=== PATIENT | male | born 1985 | race Caucasian/White ===

== ENCOUNTER 2018-01-13 08:35 | Inpatient (IN) | payer MEDICAID ==
[2018-01-13] VITALS (14 sets, daily range): BP systolic 100–117; BP diastolic 59–80
[~2018-01-13] VITALS: Ht 180.3 cm; Wt 93.9 kg
[2018-01-13 09:44] LABS: MCH 37.6 pg (26.0-34.0); MCHC 34.1 g/dL (28.0-37.0); MCV 110.2 fL (80.0-100.0); NUCLEATED RBCS 1 /100WBC; PLATELET COUNT* 277 thou/uL (150-400); RBC 3.18 mil/uL (4.50-6.00); RDW-CV 17.3 % (10.5-14.5); WBC 14.5 thou/uL (4.0-11.0)
[2018-01-13 09:48] LABS: ANION GAP 12 mmol/L (7-16); BUN 8 mg/dL (7-18); CALCIUM 11.3 mg/dL (8.5-10.1); CHLORIDE 85 mmol/L (98-107); CO2 26 mmol/L (21-32); CREATININE 1.2 mg/dL (0.6-1.3); SODIUM 123 mmol/L (136-145)
[2018-01-13 09:55] LABS: ALBUMIN 1.9 g/dL (3.4-5.0); ALKALINE PHOSPHATASE 405 U/L (46-116); LIPASE 431 U/L (73-393); SGOT 823 U/L (15-37); SGPT 90 U/L (30-65); TOTAL BILIRUBIN 21.4 mg/dL (<0.1-1.0); TOTAL PROTEIN 6.7 g/dL (6.4-8.2); TROPONIN-I LEVEL <0.06 ng/mL (<0.06)
[2018-01-13 10:10] LABS: POTASSIUM 2.6 mmol/L (3.5-5.1)
[2018-01-13 10:11] LABS: GLUCOSE 119 mg/dL (70-99)
[2018-01-13 10:18] LABS: PHOSPHORUS* 2.5 mg/dL (2.5-4.9)
[2018-01-13 10:29] LABS: MAGNESIUM 0.8 mg/dL (1.8-2.4)
--- NOTE | 2018-01-13 10:32 | NUR ---
PT REFUSING TO WEAR OXYGEN, PROVIDER NOTIFIED
[2018-01-13 10:36] LABS: BE 0.9 mmol/L (-2 to +3); HCO3 23.3 mmol/L (22.0-26.0); PCO2 VENOUS 30.1 mmHg (41.0-51.0)
[2018-01-13 10:37] LABS: PO2 VENOUS 38.9 mmHg (35.0-45.0)
[2018-01-13 10:51] LABS: ABSOLUTE BASOPHILS 0.1 thou/uL (0.0-0.2); ABSOLUTE LYMPHOCYTES 2.6 thou/uL (0.8-5.3); ABSOLUTE MONOCYTES 1.9 thou/uL (0.0-1.2); ABSOLUTE NEUTROPHILS 9.9 thou/uL (1.6-8.1); ANISOCYTOSIS 2+; ATYPICAL LYMPHS 2 %; LARGE PLATELETS OCCASIONAL; PLATELET ESTIMATE ADEQUATE; POLYCHROMASIA 2+; PROMYELOCYTES 1 %
[2018-01-13 10:52] LABS: TARGET CELLS 1+
--- NOTE | 2018-01-13 11:05 | NUR ---
SPOKE TO RASHI, ADMITTING RN IN ICU, WILL CALL REPORT WHILE IN CT AND TAKE PT TO ROOM FROM THERE
[2018-01-13 12:39] LABS: INR 1.8; PROTIME 17.8 Seconds (9.20-11.50)
--- NOTE | 2018-01-13 12:42 | EKG ---
[place] [address] ELECTROCARDIOGRAM REPORT Name: OLIVE REDDY Room: [address] IN [facility].#: [id number] Admission: 01/13/18 Attend Phys: Annamarie Ye MD Discharge: Date of : 81 Report #: [id number] THIS REPORT FOR: //name// [facility] ED Test Date: 2018-01-13 Test Time: 08:49:20 Pat Name: OLIVE REDDY Department: Room: Gender: Full Time Staff Interpreter: : 1985 Requested By: Eliz Renteria Order Number: [id number] MD: Jacob Carter Measurements Intervals [place] Rate: 124 P: 11 IA: 130 QRS: -68 QRSD: 85 T: 56 QT: 330 QTc: 474 Interpretive Statements Sinus tachycardia Low voltage, extremity leads Consider inferior infarct Borderline prolonged QT interval No previous ECG available for comparison Electronically Signed On 01-13-2018 12:42:45 CDT by Jacob Carter [email or web address] <ELECTRONICALLY SIGNED> By: Jacob Carter MD, [facility] 01/13/18 1242 0849 [id number] Jacob Carter MD, [facility] /EPI
[2018-01-13 13:30] LABS: CREATININE 1.1 mg/dL (0.6-1.3)
[2018-01-13 13:32] LABS: POTASSIUM 2.9 mmol/L (3.5-5.1)
--- NOTE | 2018-01-13 14:10 | NUR ---
RECEIVED PT FROM ER. PT ALERT TO PERSON, PLACE, SITUATION, YEAR AND MONTH. PT REPORTED IT IS MONDAY. CIWA'S CHARTED. PT DENIES FEELING ANXIOUS, PT FIDGETING WITH BLANKET, MOVING THINGS AROUND, APPEARS SLIGHTLY ANXIOUS. PT C/O OF ABDOMINAL PAIN. SPOKE TO PT , PT CAN HAVE 1 TIME 4MG MORPHINE. ADMISSION ASSESSMENT COMPLETE. BED ALARM ON. MAGNESIUM AND POTASSIUM REPLACED. NOTIFIED NO IV MAGNESIUM AVAILABLE PER PHARMACY. PO MAG DOMINGUEZ. PT ON ELECTROLYTE PROTOCOL.
[2018-01-13 16:23] LABS: URINE BLOOD TRACE (Negative); URINE CLARITY SL CLOUDY; URINE COLOR BROWN; URINE GLUCOSE-RANDOM TRACE (Negative); URINE KETONES 1+ (Negative); URINE LEUKOCYTES-REFLEX NEGATIVE (Negative); URINE NITRITE-REFLEX NEGATIVE (Negative); URINE PROTEIN 1+ (Negative); URINE SPECIFIC GRAVITY <= 1.005 (1.005-1.030)
[2018-01-13 16:24] LABS: URINE BILIRUBIN 3+ (Negative)
[2018-01-13 16:30] LABS: AMP/METHAMP Negative (Negative); BARBITURATES Negative (Negative); BENZODIAZEPINES Negative (Negative); COCAINE Negative (Negative); METHADONE Negative (Negative); OPIATES POSITIVE (Negative); PCP Negative (Negative); THC Negative (Negative)
[2018-01-13 16:42] LABS: SQUAMOUS 0-3 Few /LPF (0-3)
[2018-01-13 16:43] LABS: HYALINE CASTS 0-3 Few /LPF (None Seen); MUCUS 0-3 Light strn/LPF (None Seen)
[2018-01-13 16:44] LABS: BACTERIA-REFLEX 1-9 Few /HPF (None Seen); CRYSTALS None Seen /LPF (None Seen); URINE RBC 0-2 Rare /HPF (0-2); URINE WBC-REFLEX 6-15 Few /HPF (0-5)
--- NOTE | 2018-01-13 19:29 | NUR ---
PER ULTRASOUND UNABLE TO DO ULTRASOUND TODAY, WILL DO IN AM. PER RADIOLOGY UNABLE TO DO PARACENTESIS TODAY.
--- NOTE | 2018-01-13 19:59 | NUR ---
RECIEVED RUSSELL AND ASSUMED CARE OF PT AT 1930. MPT INCONTINENT OF LARGE LIQUID STOOL AT THAT TIME. PT GIVEN COMPLETE BATH AND BED CHANGE. PT RESTING QUIETLY IN BED AT THIS TIME. BED ALARM ON, CALL LIGHT IN REACH, PT INVIEW OF NURSES STATION.
[2018-01-13 20:24] LABS: CALCIUM 10.2 mg/dL (8.5-10.1); MAGNESIUM 1.1 mg/dL (1.8-2.4); POTASSIUM 3.4 mmol/L (3.5-5.1)
[2018-01-14] VITALS (21 sets, daily range): BP systolic 103–124; BP diastolic 65–95
[2018-01-14 00:05] LABS: CALCIUM 9.9 mg/dL (8.5-10.1); MAGNESIUM 1.3 mg/dL (1.8-2.4); POTASSIUM 3.5 mmol/L (3.5-5.1)
[2018-01-14 04:02] LABS: HEMATOCRIT 31.5 % (42.0-52.0); HEMOGLOBIN 10.8 gm/dL (14.0-18.0); MCH 38.3 pg (26.0-34.0); MCHC 34.2 g/dL (28.0-37.0); MPV 11.1 fl. (7.2-11.1); RBC 2.81 mil/uL (4.50-6.00); RDW-CV 17.3 % (10.5-14.5); WBC 14.4 thou/uL (4.0-11.0)
[2018-01-14 04:16] LABS: INR 1.5; PROTIME 14.8 Seconds (9.20-11.50)
[2018-01-14 04:22] LABS: ALBUMIN 1.8 g/dL (3.4-5.0); CALCIUM 9.2 mg/dL (8.5-10.1); CREATININE 0.8 mg/dL (0.6-1.3); MAGNESIUM 1.4 mg/dL (1.8-2.4); POTASSIUM 3.8 mmol/L (3.5-5.1); TOTAL BILIRUBIN 22.5 mg/dL (<0.1-1.0); TOTAL PROTEIN 6.2 g/dL (6.4-8.2)
[2018-01-14 04:41] LABS: ALBUMIN 1.8 g/dL (3.4-5.0); DIRECT BILIRUBIN 19.2 mg/dL (<0.1-0.3); TOTAL BILIRUBIN 22.9 mg/dL (<0.1-1.0); TOTAL PROTEIN 5.9 g/dL (6.4-8.2)
[2018-01-14 07:35] LABS: HEPATITIS B SURFACE AG Negative (Negative)
--- NOTE | 2018-01-14 07:52 | NUR ---
RECEIVED REPORT FROM YOANA MENDOZA. ASSESSMENT CHARTED. AFEBRILE. PT IS ON CIWA PROTOCOL. PT CONFUSED AND NOT ABLE TO COMMUNICATE. PARACENTESIS IS GOING TO BE PERFOMED RIGHT NOW. DR STYLES ORDERED A CENTRAL LINE, TPN, AND A LE. WILL CONTINUE TO MONITOR.
[2018-01-14 10:26] LABS: BF RBC <1000 /mm3; TOTAL CELL COUNT 208 /mm3
[2018-01-14 10:28] LABS: CLARITY CLEAR; COLOR AMBER; TOTAL VOLUME 3260 ml
[2018-01-14 11:36] LABS: BF LYMPHOCYTES 8 %; BF MONOCYTES 25 %; BF POLYS 67 %; BF TISSUE 316 /100 WBC
[2018-01-14 11:37] LABS: SOURCE PARACENTESIS
[2018-01-14 15:47] LABS: CALCIUM 9.2 mg/dL (8.5-10.1); CREATININE 0.6 mg/dL (0.6-1.3); MAGNESIUM 2.5 mg/dL (1.8-2.4); POTASSIUM 3.2 mmol/L (3.5-5.1)
--- NOTE | 2018-01-14 16:57 | NUR ---
PT HAS HIGH CIWA SCORES THAT HAVE PROGRESSED THROUGH OUT THE DAY TO THE 20S. UNABLE TO FOLLOW COMMANDS. ATIVAN GIVEN NEEDED. SINUS TACH. 4L NC. HAD PARASENTESIS TODAY AND TOOK OFF AROUND 3000 ML. CENTRAL LINE PLACED BY DR MCKENNA. LE PLACED. LOW OUTPUT. ELECTROLYTES BEING REPLACED. TPN ORDERED TONIGHT. MRI IS SCHEDULED FOR TOMORROW MORNING. OCCULT STOOL WAS POSITIVE. UPDATED ON PLAN OF CARE.
--- NOTE | 2018-01-14 20:48 | NUR ---
RECIEVED REPORT AND ASSUMED CARE OF PT AT 1900. PT'S CIWA SCORE 20-25. PT GIVEN PRN ATIVAN PER CIWA PROTOCOL.
[2018-01-15] VITALS (19 sets, daily range): BP systolic 82–128; BP diastolic 55–85
[2018-01-15 03:50] LABS: HEMATOCRIT 29.6 % (42.0-52.0); HEMOGLOBIN 10.2 gm/dL (14.0-18.0); MCH 39.4 pg (26.0-34.0); MCHC 34.6 g/dL (28.0-37.0); MCV 113.9 fL (80.0-100.0); MPV 10.8 fl. (7.2-11.1); RBC 2.6 mil/uL (4.50-6.00); RDW-CV 17.1 % (10.5-14.5); WBC 13.2 thou/uL (4.0-11.0)
[2018-01-15 04:11] LABS: ALBUMIN 1.5 g/dL (3.4-5.0); CALCIUM 8.4 mg/dL (8.5-10.1); CREATININE 0.5 mg/dL (0.6-1.3); PHOSPHORUS* 1.5 mg/dL (2.5-4.9); POTASSIUM 3.6 mmol/L (3.5-5.1); TOTAL BILIRUBIN 21.9 mg/dL (<0.1-1.0); TOTAL PROTEIN 5.5 g/dL (6.4-8.2)
[2018-01-15 10:27] LABS: BE 0.9 mmol/L (-2 to +3); HCO3 25.7 mmol/L (22.0-26.0); PCO2 41.7 mmHg (35.0-45.0); pH 7.408 (7.340-7.450)
--- NOTE | 2018-01-15 10:30 | NUR ---
PT ADMITTED 01/13 WITH ALCOHOL WITHDRAWL, PT WAS INTUBATED THIS MORNING. NO FAMILY HERE AT THIS TIME. CASE MGT WILL CONTINUE TO FOLLOW.
--- NOTE | 2018-01-15 15:21 | NUR ---
UNABLE TO DO MRI ORDERED DUE TO INTUBATION, CT ORDERED [id number] DUE TO VENTILATION ISSUES, DISCUSSED WITH DR STYLES AND DR CAO PER DR NAVARRETE REQUEST. DR CAO REQUESTS TO DO PROCEDURE IN AM, EEG BEING DONE. DR PRABHAKAR REQUESTED ULTRASOUND DO TO INABILITY TO DO MRI. PATIENT IS RESTING QUIETLY.
[2018-01-15 16:09] LABS: BODY FLUID PROTEIN 1.3 g/dL (())
--- NOTE | 2018-01-15 16:58 | 2DMMODE ---
[place] [address] 2 D/M-MODE ECHOCARDIOGRAM Name: OLIVE REDDY [facility] IN [facility]#: [id number] Admission: 01/13/18 Attend Phys: Annamarie Ye, Discharge: Date of : 81 Date of Service: 01/15/18 1658 Report #: [id number] THIS REPORT FOR: //name// APPROVED REPORT Study performed: 01/15/2018 09:57:21 EXAM: Comprehensive 2D, Doppler, and color-flow Echocardiogram Patient Location: In-Patient Room #: [facility] Status: routine BSA: 2.05 HR: 101 bpm BP: 89/59 mmHg Rhythm: NSR Other Information Study Quality: Good Indications Dyspnea Abdominal pain, liver failure 2D Dimensions LVEF(%): 72.32 (>50%) IVSd: 11.54 (7-11mm) LVOT Diam: 22.55 (18-24mm) LVDd: 36.00 mm PWd: 10.58 (7-11mm) Ascending Ao: 29.03 (22-36mm) LVDs: 21.37 (25-40mm) Aortic Root: 30.86 mm Landeros's LVEF: 72.32 % Volumes Left Atrial Volume (Systole) LA ESV Index: 22.50 mL/m2 Aortic Valve AoV Peak Liban.: 0.86 m/s AO Peak Gr.: 2.98 mmHg LVOT Max P.24 mmHg AO Mean Gr.: 1.93 mmHg LVOT Mean P.13 mmHg LVOT Max V: 0.75 m/s AO V2 VTI: 14.94 cm LVOT Mean V: 0.49 m/s VERONIKA (VTI): 3.63 cm2 LVOT V1 VTI: 13.57 [place] [address] 2 D/M-MODE ECHOCARDIOGRAM Name: OLIVE REDDY Room: [address] IN M.R.#: [id number] Admission: 01/13/18 Attend Phys: Annamarie Ye, Discharge: Date of : 81 Date of Service: 01/15/18 1658 Report #: [id number] E/A Ratio: 0.67 MV Decel. Time: 113.86 ms MV E Max Liban.: 0.45 m/s MV PHT: 33.02 ms MVA (PHT): 6.66 cm2 TDI E/Lateral E': 5.63 E/Medial E': 5.63 Medial E' Liban.: 0.08 m/s Lateral E' Liban.: 0.08 m/s Pulmonary Valve PV Peak Liban.: 0.79 m/s PV Peak Gr.: 2.51 mmHg Tricuspid Valve RAP Estimate: 5.00 mmHg TR Peak Gr.: 18.83 mmHg RVSP: 23.83 mmHg PA Pressure: 23.83 mmHg Left Ventricle The left ventricle is normal size. There is normal LV segmental wall motion. There is normal left ventricular wall thickness. Left ventricular systolic function is normal. The left ventricular ejection fraction is within the normal range. LVEF is 65-70%. Grade I - abnormal relaxation pattern. Right Ventricle The right ventricle is normal size. The right ventricular systolic function is normal. Atria The left atrium size is normal. The right atrium size is normal. Aortic Valve The aortic valve is normal in structure. No aortic regurgitation is present. There is no aortic valvular stenosis. Mitral Valve The mitral valve is normal in structure. There is no mitral valve regurgitation noted. No evidence of mitral valve stenosis. Tricuspid Valve The tricuspid valve is normal in structure. Mild tricuspid regurgitation. [place] [address] 2 D/M-MODE ECHOCARDIOGRAM Name: MAUREEN,OLIVE J Room: [address] IN ..#: [id number] Admission: 01/13/18 Attend Phys: Annamarie Ye, Discharge: Date of : 81 Date of Service: 01/15/18 1658 Report #: [id number] Pulmonic Valve The pulmonary valve is normal in structure. There is no pulmonic valvular regurgitation. Great Vessels The aortic root is normal in size. IVC is not well visualized. Pericardium There is no pericardial effusion. <Conclusion> The left ventricle is normal size. There is normal left ventricular wall thickness. Left ventricular systolic function is normal. The left ventricular ejection fraction is within the normal range. LVEF is 65-70%. Grade I - abnormal relaxation pattern. The right ventricle is normal size. The left atrium size is normal. The aortic valve is normal in structure. The mitral valve is normal in structure. The tricuspid valve is normal in structure. There is no pericardial effusion. There is normal LV segmental wall motion. <ELECTRONICALLY SIGNED> By: Gareth Shin MD, FACC 01/15/188 57 57 Gareth Shin MD, FACC /INF
--- NOTE | 2018-01-15 17:38 | NUR ---
CENTRAL LINE DRESSING REDRESSED. DENISE CLIPPED FOR DRESSING ADHESION. RERPORTED TO . LINE SECUREMENT DEVICE LOOSE ATEMPTED TO RESECURE. PLACED STERISTRIP OVER LINE TO SECURE REXRAYED FOR PLACEMENT. AT BEDSIDE.
[2018-01-16] VITALS (23 sets, daily range): BP systolic 92–137; BP diastolic 50–92
--- NOTE | 2018-01-16 05:47 | NUR ---
PT CONTINUED ON ATIVAN DRIP AT 10 MG/HR. NO TREMORS OR SEIZURE ACTIVITY NOTED DURING SHIFT. PT CONTINUED ON LEVOPHED DRIP AT 30 MCG/MIN TO MAINTAIN MAP > 65. PT RECIEVING OCCASIONAL FENTANYL IV PUSH FOR SEDATION WHILE INTUBATED ON VENTILATOR. O2 SAT 97-100% ON FIO2 OF 40%. PT'S HEART RATE 90-110. PT HAD LOW GRADE TEMP OF 99.9 AT 2200. FAN PLACED ON PT TO REDUCE TEMPERATURE. ORAL TEMP AT 0400 97.7. PT ON SLIDING SCALE INSULIN TO MAINTAIN GLUCOSE < 150 WHILE RECIEVING TPN. NO ACUTE CHANGES DURING SHIFT, WILL CONTINUE TO MONITOR CLOSELY.
[2018-01-16 06:17] LABS: HEMOGLOBIN 10.6 gm/dL (14.0-18.0); MCHC 33.5 g/dL (28.0-37.0)
[2018-01-16 06:19] LABS: HEMATOCRIT 31.6 % (42.0-52.0); MCH 38.6 pg (26.0-34.0); MCV 115.3 fL (80.0-100.0); RBC 2.74 mil/uL (4.50-6.00); RDW-CV 17.7 % (10.5-14.5); WBC 17.3 thou/uL (4.0-11.0)
[2018-01-16 06:41] LABS: ALBUMIN 1.4 g/dL (3.4-5.0); CALCIUM 7.9 mg/dL (8.5-10.1); CREATININE 0.7 mg/dL (0.6-1.3); MAGNESIUM 1.8 mg/dL (1.8-2.4); PHOSPHORUS* 2.7 mg/dL (2.5-4.9); TOTAL BILIRUBIN 19.4 mg/dL (<0.1-1.0); TOTAL PROTEIN 5.4 g/dL (6.4-8.2)
[2018-01-16 06:45] LABS: POTASSIUM 2.8 mmol/L (3.5-5.1)
[2018-01-16 06:49] LABS: INR 1.3; PROTIME 12.2 Seconds (9.20-11.50)
[2018-01-16 08:44] LABS: BE -2.2 mmol/L (-2 to +3); HCO3 21.9 mmol/L (22.0-26.0); PCO2 35.4 mmHg (35.0-45.0); PO2 90.1 mmHg (75.0-100.0)
--- NOTE | 2018-01-16 10:29 | CON ---
[address] [address] CONSULTATION Name: MAUREEN,OLIVE J Room: [address] IN .R.#: [id number] Admission: 01/13/18 Attend Phys: Annamarie Ye MD Discharge: Date of : 81 Report #: [id number] THIS REPORT FOR: //name// CC: [facility] physician/PCP Annamarie Ye PULMONARY CONSULTATION REFERRING PHYSICIAN: Annamarie Daugherty MD CHIEF COMPLAINT: Respiratory failure. HISTORY OF PRESENT ILLNESS: The patient is a 32-year-old male with onset of liver failure. He has alcohol abuse as well. He was admitted to the hospital. He had been complaining of abdominal discomfort and pain. Initial records from the Emergency Room revealed that the patient presented complaining of generalized abdominal pain. He apparently had been awake and alert. He was brought in by his . He took an antacid, this was not relief. He had been having increasing amount of yellowish tinge, complaining also of dark urine. He had had bloating, hematuria, constipation, vomiting as well. He has had a cough and loss of appetite. According to the records, he smokes about a pack a day and is a heavy drinker, consuming unknown amount of vodka on a daily basis. PAST MEDICAL HISTORY: Significant for alcohol abuse, liver failure of an acute subacute nature. History of intracranial hemorrhage, seizure disorder, history of asthma. He is also an alcoholic. ALLERGIES: None known. FAMILY HISTORY: Records does not reflect any family ailments. REVIEW OF SYSTEMS: Not obtainable. SOCIAL HISTORY: He is a heavy drinker, smoker a pack a day. CURRENT MEDICATIONS: Consist of propofol, DuoNeb aerosol treatments, IV Ativan infusion, IV fluids, famotidine 20 mg q. 12 hours, metronidazole 500 mg every 8 hours, insulin, lactulose, lorazepam infusion in the form of an IV drip, potassium and magnesium replacement supplementation along with phosphorus, propofol drip, Rocephin 1 gram daily, thiamine. PHYSICAL EXAMINATION: VITAL SIGNS: Blood pressure 101/77, respiratory rate 22 nonlabored, pulse rate 115 and regular, temperature 36.6 degrees centigrade. GENERAL APPEARANCE: The patient is intubated. A nasogastric tube has been placed. Dodson catheter in place. SCDs are noted as well. He has a right antecubital [place] [address] CONSULTATION Name: OLIVE REDDY Room: [address] IN [facility]#: [id number] Admission: 01/13/18 Attend Phys: Annamarie Ye MD Discharge: Date of : 81 Report #: [id number] HEENT: Head: Atraumatic. Eyes: Pupils round, equal, reactive. Positive for scleral icterus. Oral cavity: Mucous membranes are discolored with a yellowish tinge. Membranes are moist otherwise. NECK: No adenopathy. No JVD. CHEST: Reveals diminished breath sounds on the left compared to the right. Coarse throughout. CARDIOVASCULAR: Regular rhythm. ABDOMEN: Protuberant, slightly obese. Hepatomegaly is present. I cannot appreciate a spleen. No abdominal masses otherwise. His abdomen is soft, nontender. No guarding. EXTREMITIES: There is no evidence of edema. SKIN: Multiple tattoos, generalized yellowish hue to his color. NEUROLOGIC: He is unresponsive. He is on sedation. LABORATORY DATA: Arterial blood gases are pending after intubation. His hemoglobin and hematocrit of 10 and 30 with a white count of 13,000. His admission white count was 14,000. His platelet count 191,000. Electrolytes reveal sodium 132, potassium 3.6, chloride 98, CO2 of 28. BUN of 18, creatinine of 8.5. His admission lactic acid was 6.9. Total bilirubin initially was 21.4, today it is 21.9. Phosphorus is still low at 1.5, magnesium normal. Liver enzymes are increased. Ammonia level 55. TSH of 11.5. T4 is low at 1.5. Hepatitis screen is negative. IMAGING: Chest x-ray initially showed right mainstem intubation, left lung atelectasis. Post-pulling back on the ET tube, the x-ray shows improvement in the left lung atelectasis. The ET tube is well above the teetee at this point. ASSESSMENT: 1. Alcohol abuse. 2. Acute liver failure. 3. Acute renal failure. 4. Hepatorenal syndrome. 5. Presumed sepsis. 6. Alcoholism. 7. Tobacco abuse. 8. Hypothyroidism. 9. Elevated liver enzymes. 10. Hyperbilirubinemia secondary to the above liver issues. RECOMMENDATION: Arterial blood gases will be obtained post-adjustments of the ET tube and ventilator. Follow up in the a.m. as well. Chest x-ray in the a.m. Sputum trap for culture and sensitivity. Continue antibiotics as outlined by GI for the possibility of spontaneous bacterial peritonitis. Thyroid replacement will need to be initiated as well. Continue to proceed with management of alcohol withdrawal. The patient is already on Ativan drip. [address] [address] CONSULTATION Name: OLIVE REDDY Room: [address] IN [facility].#: [id number] Admission: 01/13/18 Attend Phys: Annamarie Ye MD Discharge: Date of : 81 Report #: [id number] Continue with propofol. We will need to monitor triglycerides as well. Thirty-five minutes spent conducting the critical care consult by examination of the patient, reviewing medical imaging studies as well as labs and reviewing the current notes within the [facility] system. Addendum to the above, in addition, black tarry stools possibly GI bleed as well. <ELECTRONICALLY SIGNED> By: Levi Ramírez MD 01/16/18 1029 0843 [id number] Ramírez MD /nt
--- NOTE | 2018-01-16 22:12 | NUR ---
RECIEVED REPORT AND ASSUMED CARE OF PT AT 1915. PT INTUBATED AND SEDATED ON VENTILATOR. DR PABON HERE AT START OF SHIFT TO [facility] ON PT. RECIEVED MEDICATION ORDERS. REPLACING POTASSIUM PER PROTOCOL. OSTOMY BAG PLACED OVER PARACENTHESIS SITE PER DR PABON. PT LEAKING LARGE AMOUNTS OF YELOWISH BROWN LIQUID FROM PARACENTHESIS SITE ON RIGHT SIDE OF ABDOMEN. FREQUENT SUCTION DONE DUE TO COPIUM AMOUNTS OF ORAL AND ET SECRETIONS. PT HAS PURPOSEFULL MOVENT. SOFT BILATERAL WRIST RESTRAINTS TO MAINTAIN ET TUBE, ORAL GASTRIC TUBE, CENTRAL LINE AND LE CAHTETER.
[2018-01-17] VITALS (21 sets, daily range): BP systolic 82–116; BP diastolic 41–73
--- NOTE | 2018-01-17 02:01 | NUR ---
PT'S HME OCCLUDIND FROM COPIUS AMOUNT OF THICK YELLOW SECRETIONS. HME REPLACED, ORAL AND ET SUCTIONING DONE TO CLEAR AIRWAY.
[2018-01-17 03:06] LABS: RBC 2.71 mil/uL (4.50-6.00)
[2018-01-17 03:08] LABS: HEMATOCRIT 31.8 % (42.0-52.0); HEMOGLOBIN 10.6 gm/dL (14.0-18.0); MCH 39.1 pg (26.0-34.0); MCHC 33.3 g/dL (28.0-37.0); MCV 117.4 fL (80.0-100.0); MPV 10.6 fl. (7.2-11.1); RDW-CV 18.3 % (10.5-14.5)
[2018-01-17 03:23] LABS: INR 1.3; PROTIME 12.3 Seconds (9.20-11.50)
[2018-01-17 03:29] LABS: ALBUMIN 1.3 g/dL (3.4-5.0); CALCIUM 7.6 mg/dL (8.5-10.1); CREATININE 0.6 mg/dL (0.6-1.3); MAGNESIUM 1.6 mg/dL (1.8-2.4); POTASSIUM 3.8 mmol/L (3.5-5.1); TOTAL PROTEIN 5.3 g/dL (6.4-8.2)
--- NOTE | 2018-01-17 06:31 | NUR ---
PT'S CENTRAL LINE DISLODGED. PRESSURE HELD TO SITE. ATTEMPTED TO START SALINE LOCK IN RIGHT ARM WITHOUT SUCCESS. OTHER STAFF ATTEMPTING AT THIS TIME.
[2018-01-17 09:26] LABS: HCO3 18.9 mmol/L (22.0-26.0); PCO2 31.4 mmHg (35.0-45.0); PO2 84.5 mmHg (75.0-100.0); pH 7.398 (7.340-7.450)
--- NOTE | 2018-01-17 09:42 | NUR ---
Nutrition: Recommend TF - Vital HP at goal of 60mL/hr, meeting 72% of caloric needs and 105% of protein needs. See RD Reassessment form for details.
--- NOTE | 2018-01-17 10:44 | NUR ---
CONSUTLED TO PLACE PICC FOR PT ON VENT NEEDING SEDATION AND MULTIPLE OTHER IV MEDS. VERBAL CONSENT FROM AND ORDER NOTED. RIGHT UPPER ARM ASSESSED WITH ULTRASOUND. RIGHT BASILIC IDENTIFIED AND NOTED TO BE WIDLEY PATENT. TRIPLE LUMANPOWER PICC PLACED PER PROTOCOL. LINE TRIM AT 45 1ST GRADE TEACHER ND ADVANCED TO43CM LEAVING 2CM EXTERNAL. LINE CONFIRMED WITH SHERLOCK 3CG. LINE SECURED AND RELEASED FOR USE. PRIMARY NURSING AWARE.
[2018-01-17 12:31] LABS: SOURCE ABDOMINAL
--- NOTE | 2018-01-17 15:31 | NUR ---
WOUND CARE NOTE: CONSULT RECEIVED FOR RISK OF SKIN IMPAIRMENT. LOW AIR LOSS MATTRESS FUNCTION TURNED ON. HEELS INTACT. COCCYX HAS SKIN SLIT MEASURING 1.5X0.3X0.2. PINK, MOIST WOUND BED. BELIEVE THIS IS DUE TO INCONTINENCE. APPLIED Z-GUARD OINTMENT. RECOMMEND TURN Q2 HOURS-KEEP OFF AREA LIMIT HOB <30 DEGREES IF PATIENT CAN TOLERATE
--- NOTE | 2018-01-17 16:41 | CON ---
[address] [address] CONSULTATION Name: OLIVE REDDY Room: [address] ADM IN M.R.#: [id number] Admission: 01/13/18 Attend Phys: Annamarie Ye MD Discharge: Date of : 81 Report #: [id number] THIS REPORT FOR: //name// CC: [facility] physician/PCP Annamarie Ye DATE OF SERVICE: 01/13/2018 REASON FOR CONSULT: Elevated liver enzymes, abdominal pain, jaundice. HISTORY OF PRESENT ILLNESS: This is a 32-year-old male with history of alcoholism, who reports that he has been drinking pint of vodka for the past 8 years. He reports that he has noticed that his abdomen is distended and his urine has turned dark. The patient was not feeling well, which prompted him to come to hospital. Since hospitalization, he had a CT of abdomen and pelvis which revealed abdominal and pelvic ascites, dilated common bile duct to 18 mm, possible filling defect in the distal common bile duct, elevated bilirubin to 21, and AST to ALT ratio of 8. He also has electrolyte abnormalities as his sodium, potassium and chloride are all low. His calcium is 11. The patient denies any hematochezia or melena. He reports that he does not use any drugs, but he smokes cigarette, a pack-a-day. PAST MEDICAL HISTORY: Significant for history of alcoholism, seizure disorder, head injury and bleed secondary to trauma from anesthesia, electrolyte derangement, and acute liver failure. ALLERGIES: No known drug allergy. MEDICATIONS: The patient reports that he does not take any medications at home. FAMILY HISTORY: Negative for GI malignancy. PHYSICAL EXAMINATION: VITAL SIGNS: Reveals blood pressure of 113/72, respirations 16, pulse 110, O2 sat is 96. LUNGS: Clear. CARDIOVASCULAR: Regular. ABDOMEN: Large, soft, but mildly distended. There is positive fluid shift suggestive of ascites. Abdomen is also tender to palpation in all 4 quadrants. NEUROLOGIC: The patient is alert, oriented x 3. LABORATORY DATA: Reveal sodium of 124, potassium 2.9, chloride is 86, BUN is 8, creatinine 1.1, glucose 131, AST is 823, ALT 90, alkaline phosphatase 405, total [facility] [address] [place] [address] CONSULTATION Name: OLIVE REDDY Mark Room: [address] IN [facility]#: [id number] Admission: 01/13/18 Attend Phys: Annamarie Ye MD Discharge: Date of : 81 Report #: [id number] bilirubin is 21.4. Lipase is 431. Phosphorus is 2.5, magnesium is 0.8. Alcohol level on admission was 204. WBC is 14.5 with hemoglobin of 12 and platelet of 227. IMAGING: As discussed above. ASSESSMENT AND PLAN: The patient with electrolyte derangement, who also has alcoholism and presents with alcohol level of above 200. He has abdominal pain and ascites. He also has leukocytosis, this may be secondary to spontaneous bacterial peritonitis, so he should be tapped and fluid should be sent for albumin, total protein, cell count, and serology. He also has dilated common bile duct to 18 mm with possible distal common bile duct defect. I would recommend initially ultrasound and then an MRCP. We will also like to obtain viral hepatitis serology status, so we will order this. The patient is at risk of alcohol withdrawal and with his seizure history, he should be on alcohol withdrawal program. I will also recommend antibiotic therapy. <ELECTRONICALLY SIGNED> By: Dalila Harris MD 01/17/18 1641 1502 [id number] Harris MD /nt
[2018-01-18] VITALS (28 sets, daily range): BP systolic 99–121; BP diastolic 57–85
--- NOTE | 2018-01-18 03:30 | NUR ---
TF RESIDUAL AT 2200 175ML, TF PLACED ON HOLD. RECHECKED RESIDUAL AT 2300 160ML, VOLUME DISCARDED AND TF LEFT ON HOLD. RESTARTED AT MIDNIGHT AT 20ML/HR. RESIDUAL AT 0300 60ML. ETT NOTED TO HAVE THIN DRAINAGE MORE RESEMBLING TF IN COLOR. TF HELD AND STAT KUB ORDERED TO VERIFY NG TUBE PLACEMENT.
[2018-01-18 04:33] LABS: HEMATOCRIT 30.2 % (42.0-52.0); HEMOGLOBIN 10.2 gm/dL (14.0-18.0); MCH 39.3 pg (26.0-34.0); MCHC 33.6 g/dL (28.0-37.0); MCV 116.9 fL (80.0-100.0); MPV 10.6 fl. (7.2-11.1); RBC 2.59 mil/uL (4.50-6.00); RDW-CV 18.5 % (10.5-14.5); WBC 18.2 thou/uL (4.0-11.0)
[2018-01-18 05:13] LABS: ALBUMIN 1.2 g/dL (3.4-5.0); CALCIUM 6.9 mg/dL (8.5-10.1); CREATININE 0.9 mg/dL (0.6-1.3); MAGNESIUM 1.7 mg/dL (1.8-2.4); POTASSIUM 4.3 mmol/L (3.5-5.1); TOTAL BILIRUBIN 17.2 mg/dL (<0.1-1.0); TOTAL PROTEIN 5.2 g/dL (6.4-8.2)
--- NOTE | 2018-01-18 06:58 | NUR ---
DR JOSEPH ON UNIT AND NOTIFIED OF TF RESIDUALS. KUB SHOWED TIP OF NG TUBE IN DISTAL STOMACH. PER DR JOSEPH, START TF AT TRICKLE RATE WHEN STOMACH HAS EMPTIED. VERSED, LEVOPHED AND EPI GTTS INFUSING ORDERED. COMPLETE BED BATH GIVEN, HAIR SHAMPOOED. AFEBRILE. PT HAS BEEN TURNED Q2HR THROUGHOUT THE SHIFT.
--- NOTE | 2018-01-18 08:40 | CON ---
[address] [address] CONSULTATION Name: OLIVE REDDY Room: [address] ADM IN M.R.#: [id number] Admission: 01/13/18 Attend Phys: Annamarie Ye MD Discharge: Date of : 81 Report #: [id number] THIS REPORT FOR: //name// CC: FAM physician/PCP Annamarie Ye DATE OF SERVICE: 01/15/2018 CONSULTING PHYSICIAN: Dr. Ramírez. REASON FOR NEPHROLOGY CONSULTATION: Possible hepatorenal syndrome. REASON FOR ADMISSION: The patient was having nausea and abdominal distention and was turning yellow. HISTORY OF PRESENT ILLNESS: The patient is a 32-year-old male who has a history of alcohol dependency. He is a heavy alcohol drinker, came in with malaise and jaundice and abdominal distention, which was going on for 1-2 weeks and he was admitted on 01/13/2018 for these symptoms. He drinks about 1 pint of vodka a day. He was found to be in acute liver failure with hyperammonemia. His creatinine thankfully has stayed normal and his creatinine is 0.5 today. His urine output also has been decent. He had about 925 mL of urine output in the last 24 hours and his transaminases have been slowly trending down. Total bilirubin is still quite high at 21.9. The patient also has a left-sided consolidation. He is also withdrawing from alcohol now and he had to be intubated today because of his altered mental status as well as because he was at risk for possible aspiration. His stool is positive for occult blood. His sodium was low when he came in 123 two days ago and has slowly improved to 132. He is currently on TPN. His blood pressures have been towards the lower side 90-100 systolic. He also had a diagnostic paracentesis yesterday to rule out SBP. REVIEW OF SYSTEMS: He is currently very jaundiced. He is intubated and sedated and so therefore review of systems is quite limited. ALLERGIES: There are no known drug allergies. PAST MEDICAL AND SURGICAL HISTORY: History of seizures, history of alcohol dependency, history of asthma. FAMILY HISTORY: Again, cannot obtain from the patient, but according to the chart, there is no pertinent family history. SOCIAL HISTORY: He drinks every day, about 1 pint of vodka a day, smokes about 1-1/2 to 2 packs of cigarettes a day, other recreational drug use, history of [place] [address] CONSULTATION Name: OLIVE REDDY Mark Room: [address] IN [facility]#: [id number] Admission: 01/13/18 Attend Phys: Annamarie Ye MD Discharge: Date of : 81 Report #: [id number] HOME MEDICATIONS: We do not have a list of home medications. Actually it seems like he was not taking any medications. I cannot be sure of that because the patient is unable to provide me that history. PHYSICAL EXAMINATION: VITAL SIGNS: Blood pressure was 89/59, respiratory rate 22, pulse rate 115, temperature 36.6, pulse ox is 98% on 100% FiO2 on the ventilator. GENERAL: He is currently intubated and he is sedated. HEAD, EYES, EARS, NOSE, THROAT: He is atraumatic, normocephalic. He has ET tube in place and he is total body jaundiced. NECK: There is no JVD. CHEST: Currently having some diminished breath sounds, but there are no crackles or wheezing. CARDIOVASCULAR: S1, S2 normal. No murmurs. ABDOMEN: Quite distended. Tenderness cannot be elicited. He is currently sedated and otherwise abdomen is soft and bowel sounds are diminished. EXTREMITIES: He has no lower extremity edema, symmetrical extremities. NEUROLOGICAL FUNCTION: He is currently sedated, cannot assess. PSYCHIATRIC: Cannot assess right now. LABORATORY DATA: His white count is 13.2, his hemoglobin is 10.2, his platelet count is 191. His sodium is 132, which is slowly improving and his creatinine is 0.5, it was 0.6 yesterday and was 1.2 when he came in. All the labs are reviewed. His phosphorus is 1.5. His AST is 528, his ALT is 81, his alkaline phosphatase is 282. His ammonia is 55. His albumin is 1.5 and other labs were reviewed. IMAGING: Chest x-ray, abdominal pelvic ultrasound, abdominal pelvic CT were reviewed. ASSESSMENT AND PLAN: 1. Hyponatremia, which likely was because of hypovolemia as well as poor solute intake and heavy alcohol use: Sodium is currently getting better. He is on TPN. Rate of rise of sodium seems to be appropriate. Sodium was 123 when he came in and now 132. 2. Acute liver failure: Transaminitis is slowly getting better. Etiology for liver failure is alcoholic hepatitis and GI is closely following. He does not seem like he is in hepatorenal syndrome right now but we will continue to follow with you closely to see if there is any development of that. 3. Hypophosphatemia: This is because of alcohol withdrawal and this is being replaced as per protocol. 4. Ascites: This is in the setting of acute liver failure as well as acute alcoholic hepatitis: We will defer to primary team in GI. He is on board for this. 5. Left-sided consolidation: He is being followed by Pulmonology and he is [facility] [address] [place] [address] CONSULTATION Name: OLIVE REDDY Mark Room: [address] ADM IN .R.#: [id number] Admission: 01/13/18 Attend Phys: Annamarie Ye MD Discharge: Date of : 81 Report #: [id number] getting antibiotics for this as per Pulmonology. He is on ceftriaxone and Flagyl. 6. Hypotension: This is not a surprise. He was just intubated and given observation, avoid hypotension. Also with acute liver failure this can precipitate more hypotension and to keep his mean arterial pressure more than 65, may have to start pressors. 7. Proteinuria, bilirubinuria: The patient has evidence of no blood in his urine, but trace protein and definitely bilirubin in the setting of acute liver failure. This should be followed as an outpatient. This study should be rechecked. No acute intervention needed right now for this. Creatinine is 0.5. Thank you for this consultation and I did discuss with the patient's nurse. We will continue to follow with you. <ELECTRONICALLY SIGNED> By: Debra Huynh MD 01/18/18 0840 [id number] [id number] Hunyh MD /nt
[2018-01-18 09:35] LABS: BE -2.3 mmol/L (-2 to +3); HCO3 20.1 mmol/L (22.0-26.0); PCO2 27.9 mmHg (35.0-45.0); PO2 87.4 mmHg (75.0-100.0); pH 7.475 (7.340-7.450)
--- NOTE | 2018-01-18 18:29 | NUR ---
PT ASSESSMENT CHARTED. ELEVATED TEMPERATURE ON AND OFF THROUGHOUT THE DAY. OTHERWISE VSS BUT STILL REQUIRING MAX OF LEVOPHED. EPI IS OFF AT THIS TIME. TF RESTARED A TRICKLE FEED AND CURRENTLY RUNNING AT 20 MLS/HR. RESIDUALS UNDER 10MLS NOTED. CT OF ABDOMEN COMPLETE. VERSED STOPPED THIS MORNING FOR SEDATION VACATION AND REMAINS OFF AT THIS TIME. PATIENT IS RESPONSIVE TO PAIN BUT STILL UNABLE TO OPEN EYES OR GRASP HANDS WHEN PROMPTED. PT DOES APPEAR TO MOVE ALL EXTREMETIES SLIGHTLY BUT NO LARGE MOVEMENTS NOTED. PUPILS ARE 2 AND SLUGGISH STILL WELL. Q2H TURNS TO MAINTAIN SKIN INTEGRITY.
[2018-01-19] VITALS (29 sets, daily range): BP systolic 88–128; BP diastolic 56–94
[2018-01-19 03:32] LABS: HEMATOCRIT 35.2 % (42.0-52.0); HEMOGLOBIN 11.8 gm/dL (14.0-18.0); MCHC 33.6 g/dL (28.0-37.0); RBC 3.03 mil/uL (4.50-6.00); RDW-CV 18.8 % (10.5-14.5); WBC 14.4 thou/uL (4.0-11.0)
[2018-01-19 03:40] LABS: INR 1.2; PROTIME 11.7 Seconds (9.20-11.50)
[2018-01-19 03:43] LABS: ALBUMIN 1.2 g/dL (3.4-5.0); CALCIUM 6.6 mg/dL (8.5-10.1); CREATININE 0.8 mg/dL (0.6-1.3); MAGNESIUM 2.2 mg/dL (1.8-2.4); POTASSIUM 3.8 mmol/L (3.5-5.1); TOTAL BILIRUBIN 15.9 mg/dL (<0.1-1.0); TOTAL PROTEIN 5.5 g/dL (6.4-8.2)
--- NOTE | 2018-01-19 06:50 | NUR ---
PT REMAINS STABLE ON VENTILATOR. VERSED GTT OFF SINCE YESTERDAY MORNING, RESPONSIVE TO PAINFUL STIMULI. LEVOPHED GTT TITRATED DOWN TO 15MCG/MIN, MAP REMAINS >65. T-MAX 100.3, TEMP RETURNS TO WNL WITH FAN ON HIM. COPIOUS ETT SECRETIONS, PT HAS GOOD INDEPENDENT COUGH EFFORT AND EXPECTORATES SPUTUM INTO ETT TO THE POINT THAT IT IS VISIBLE IN TUBE. TUBE FEED RESIDUALS REMAINS <10ML, RATE ADVANCED TO 40ML/HR AND TOLERATING WELL. 1000ML LIQUID STOOL OUTPUT VIA FLEXISEAL. COMPLETE BED BATH GIVEN, HAIR SHAMPOOED. PT HAS BEEN TURNED Q2HR THROUGHOUT THE SHIFT.
[2018-01-19 09:18] LABS: URINE BLOOD 3+ (Negative); URINE CLARITY SL CLOUDY; URINE COLOR BROWN; URINE GLUCOSE-RANDOM 1+ (Negative); URINE KETONES TRACE (Negative); URINE LEUKOCYTES-REFLEX TRACE (Negative); URINE NITRITE-REFLEX NEGATIVE (Negative); URINE PROTEIN 2+ (Negative); URINE SPECIFIC GRAVITY 1.015 (1.005-1.030)
[2018-01-19 09:20] LABS: ICTOTEST (BILI CONFIRMATORY) Positive (Negative); URINE BILIRUBIN 3+ (Negative)
[2018-01-19 09:27] LABS: BACTERIA-REFLEX 1-9 Few /HPF (None Seen); MUCUS 0-3 Light strn/LPF (None Seen); SQUAMOUS 0-3 Few /LPF (0-3); URINE WBC-REFLEX 0-5 Rare /HPF (0-5)
[2018-01-19 09:28] LABS: CRYSTALS None Seen /LPF (None Seen); HYALINE CASTS 0-3 Few /LPF (None Seen)
--- NOTE | 2018-01-19 12:17 | EEG ---
[address] [address] EEG STUDY REPORT Name: OLIVE REDDY Room: [address] IN .R.#: [id number] Admission: 01/13/18 Attend Phys: Annamarie Ye MD Discharge: Date of : 81 Report #: [id number] THIS REPORT FOR: //name// CC: [facility] physician/PCP Annamarie Ye DATE OF SERVICE: 01/16/2018 This patient is being evaluated for altered mental status. EEG was done by placing the electrodes by standard 10-20 system of electrode placement. Both referential and sequential montages were used for recording. Background activity in this patient's EEG is about 8 Hz and 30 microvolt. Photic stimulation is unremarkable. IMPRESSION: This patient's EEG is intermixed with moderate amount of slowing. That is a nonspecific abnormality, which can occur with encephalopathy, effect of psychotropic medication, dementia, etc. Clinical correlation is recommended. <ELECTRONICALLY SIGNED> By: Jacobo Abdul MD 01/19/18 1217 0717 [id number] Abdul MD /nt
--- NOTE | 2018-01-19 12:17 | CON ---
[address] [address] CONSULTATION Name: OLIVE REDDY Room: [address] ADM IN M.R.#: [id number] Admission: 01/13/18 Attend Phys: Annamarie Ye MD Discharge: Date of : 81 Report #: [id number] THIS REPORT FOR: //name// CC: [facility] physician/PCP Annamarie Ye DATE OF SERVICE: 01/15/2018 HISTORY OF PRESENT ILLNESS: This is a 32-year-old male patient who was evaluated by me for altered mental status. The patient is unable to provide any history and he is intubated. He is unresponsive. I reviewed the patient's records and he has advanced liver abnormality. There is a history of alcohol the best I can tell and this patient has multisystem abnormalities. He is being seen by multiple consultants at the moment. REVIEW OF SYSTEMS: Positive for possible hepatorenal syndrome. He has abdominal distention. He has acute liver failure. This patient is a heavy alcohol drinker. When he came, his sodium was low. Presently, he is sedated. This is the best review of systems I can get and I tried to get 14-point review of systems There is some question of seizure and it is not sure whether they are related to alcohol or not. PAST MEDICAL HISTORY: I am unable to obtain except has alcohol dependency. FAMILY HISTORY: Apparently is unremarkable. SOCIAL HISTORY: He drinks and smokes. PHYSICAL EXAMINATION: Indicate he is obtunded and he does not have any response at all. His pupils are midpoint and nonreactive. I cannot tell if he moves anything. Rest of the examination is impossible. He is a reasonably well-developed individual who does not have any dysmorphic features of eyes, ears and face. His blood pressure is 92/62, respiration is 20, pulse is 121. LABORATORY DATA: Indicate a white count of 13.2. His bilirubin is 19.2. He did not have any imaging study of the brain. IMPRESSION: 1. Hepatic encephalopathy. 2. Poorly defined history of seizure. It is not clear whether they were alcohol related or not. RECOMMENDATION: 1. EEG. 2. If cleared by surgical endoscopist and hospitalist, we would like to get a CT scan done at that time. We will look at these images [place] [address] CONSULTATION Name: OLIVE REDDY Room: [address] IN [facility]#: [id number] Admission: 01/13/18 Attend Phys: Annamarie Ye MD Discharge: Date of : 81 Report #: [id number] neurological management he may need. Thank you very much for this referral. <ELECTRONICALLY SIGNED> By: Jacobo Abdul MD 01/19/18 1217 1407 [id number] Abdul MD /nt
--- NOTE | 2018-01-19 19:15 | NUR ---
RECIEVED REPORT AND ASSUMED CARE OF PT. PT INTUBATED ON VENTILATOR, NO SEDATION AT THIS TIME OR DURING SAY SHIFT. LEVOPHED INFUSING AT 15 MCG VIA LEFT BASILSI PICC LINE TO KEEP MAP > 65. BILATERAL SOFT WRIST RESTRAINTS TO MAINTAIN ET TUBE, PICC LINE, NG TUBE AND LE CATHETER.
[2018-01-20] VITALS (34 sets, daily range): BP systolic 85–113; BP diastolic 47–77
[2018-01-20 07:25] LABS: HEMATOCRIT 30.9 % (42.0-52.0); HEMOGLOBIN 10.3 gm/dL (14.0-18.0); MCH 38.5 pg (26.0-34.0); MCHC 33.2 g/dL (28.0-37.0); MCV 115.8 fL (80.0-100.0); MPV 10.2 fl. (7.2-11.1); RBC 2.67 mil/uL (4.50-6.00); RDW-CV 18.3 % (10.5-14.5); WBC 18.4 thou/uL (4.0-11.0)
[2018-01-20 07:39] LABS: ALBUMIN 1.1 g/dL (3.4-5.0); CALCIUM 6.3 mg/dL (8.5-10.1); MAGNESIUM 1.8 mg/dL (1.8-2.4); PHOSPHORUS* 1.5 mg/dL (2.5-4.9); TOTAL BILIRUBIN 12.2 mg/dL (<0.1-1.0); TOTAL PROTEIN 5.3 g/dL (6.4-8.2)
[2018-01-20 07:41] LABS: POTASSIUM 3.3 mmol/L (3.5-5.1)
--- NOTE | 2018-01-20 09:43 | NUR ---
ASSUMED PT CARE 0730. PT ATTEMPTING TO MOVE ARMS AND MOVED RIGHT FOOT. PT IS NOT FOLLOWING COMMANDS. LEVOPHED GTT TITRATED DOWN FROM 15 MCG TO 13 MCG. WILL CONTINUE TO MONITOR. PT SINUS TACHYCARDIC HR 110-120. AXILLARY TEMP OF 101. ICE PACKS AND FAN APPLIED TO PT. ORAL TEMP REASSESED AFTER 45 MINUTES AND 98.5. WILL CONTINUE TO MONITOR. PT CONTINUES TO HAVE A COUGH. MUCOUS SUCTIONED. FLEXASEAL IRRIGATED AND RE-INFLATED STOOL HAD COME OUT OF FLEXASEAL TUBE. POTASSIUM & PHOSPHORUS LOW AND REPLACED PER PROTOCOL. SPOUSE JORGE ALBERTO CALLED, UPDATE GIVEN AND INFORMED [facility] PAPER WORKED SIGNED AND READY FOR SALT REFINER. WILL CONTINUE PLAN OF CARE.
--- NOTE | 2018-01-20 16:30 | NUR ---
TMAX 100.8. FAN HAS BEEN ON PT THIS SHIFT. ICE PACKS HAVE BEEN APPLIED 3X'S. TITRATED DOWN LEVOPHED GTT TO 4MCG. PT CONTINUES TO HAVE COPIOUS AMOUNTS OF MUCOUS SECRETIONS IN ET TUBE AND AT TIMES IN ORAL CAVITY. TUBE FEEDINGS AT GOAL OF 50 ML/HOUR. RESIDUAL < 10. POTASSIUM AND PHOSPHORUS REPLACED. PT WAS ABLE TO FOLLOW COMMAND AND SQUEEZE THIS RN'S HAND. PT FOLLOWED COMMAND WITH LEFT HAND ON 2 DIFFERENT OCCASSIONS. PT GIVEN 1 TIME DOSE OF PRN FENTANLY FOR RESPIRATIONS IN 30'S.
[2018-01-20 21:48] LABS: PHOSPHORUS* 1.6 mg/dL (2.5-4.9); POTASSIUM 3.6 mmol/L (3.5-5.1)
--- NOTE | 2018-01-20 22:15 | NUR ---
CDIFF NEGATIVE, PT. TAKEN OUT OF ISOLATION AT THIS TIME.
[2018-01-21] VITALS (41 sets, daily range): BP systolic 82–109; BP diastolic 36–77
[2018-01-21 04:00] LABS: HEMATOCRIT 31.6 % (42.0-52.0); HEMOGLOBIN 10.2 gm/dL (14.0-18.0); MCH 37.6 pg (26.0-34.0); MCHC 32.4 g/dL (28.0-37.0); MCV 116.1 fL (80.0-100.0); MPV 10.5 fl. (7.2-11.1); RBC 2.72 mil/uL (4.50-6.00); RDW-CV 18.1 % (10.5-14.5); WBC 23.6 thou/uL (4.0-11.0)
[2018-01-21 04:01] LABS: BE -4.3 mmol/L (-2 to +3); HCO3 18.4 mmol/L (22.0-26.0); PCO2 26.7 mmHg (35.0-45.0); PO2 78.8 mmHg (75.0-100.0); pH 7.456 (7.340-7.450)
[2018-01-21 04:16] LABS: ALBUMIN 1.1 g/dL (3.4-5.0); CALCIUM 6.3 mg/dL (8.5-10.1); CREATININE 0.8 mg/dL (0.6-1.3); MAGNESIUM 1.9 mg/dL (1.8-2.4); POTASSIUM 3.4 mmol/L (3.5-5.1); TOTAL BILIRUBIN 11.3 mg/dL (<0.1-1.0); TOTAL PROTEIN 5.4 g/dL (6.4-8.2)
--- NOTE | 2018-01-21 05:51 | NUR ---
PT. REMAINS OFF OF SEDATION ON VENTILATOR. HAS SEEMED COMFORTABLE AND HAS NOT REQUIRED SEDATION THROUGHOUT SHIFT. SINUS TACHY ON MONITOR. FECAL TUBE CONTINUES TO DRAIN MODERATE AMOUNT OF STOOL. BILAT SOFT WRIST RESTRAINTS REMAIN IN PLACE. WILL CONTINUE TO MONITOR.
[2018-01-21 08:09] LABS: URINE BLOOD 2+ (Negative); URINE CLARITY CLEAR; URINE COLOR DARK YELLOW; URINE GLUCOSE-RANDOM TRACE (Negative); URINE KETONES TRACE (Negative); URINE LEUKOCYTES-REFLEX TRACE (Negative); URINE NITRITE-REFLEX NEGATIVE (Negative); URINE PROTEIN TRACE (Negative); URINE SPECIFIC GRAVITY 1.015 (1.005-1.030); URINE UROBILINOGEN 0.2 E.U./dl (0.2-1.0)
[2018-01-21 08:16] LABS: ICTOTEST (BILI CONFIRMATORY) Positive (Negative); URINE BILIRUBIN 3+ (Negative)
[2018-01-21 08:27] LABS: SQUAMOUS NONE SEEN /LPF (0-3)
[2018-01-21 08:28] LABS: BACTERIA-REFLEX 1-9 Few /HPF (None Seen); CRYSTALS None Seen /LPF (None Seen); HYALINE CASTS 0-3 Few /LPF (None Seen); MUCUS None Seen strn/LPF (None Seen); URINE RBC 3-10 Few /HPF (0-2); URINE WBC-REFLEX 0-5 Rare /HPF (0-5)
[2018-01-21 12:11] LABS: PHOSPHORUS* 1.6 mg/dL (2.5-4.9); POTASSIUM 3.6 mmol/L (3.5-5.1)
--- NOTE | 2018-01-21 18:13 | NUR ---
PATIENT SOMEWHAT PROGRESSING TOWARDS GOALS. REMAINS DROWSY, ABLE TO FOLLOW COMMANDS INTERMITTENTLY, OPENS EYES SOMETIMES TO VOICE. SHAKES HEAD NO TO DISOMFORT. PATIENT STILL HAVING COPIOUS AMOUNTS OF SECRETIONS FROM ENDOTRACHEAL SUCTION. ID CHANGED ABX TO UNASYN. AFEBRILE TODAY. FLEXISEAL FOUND IN BED THIS AM OUT OF PATIENT, REPLACED. HAVING LIQUID STOOLS R/T LACTULOSE ADMINISTRATION. AMMONIA TRENDING DOWN. WEANING TRIAL ORDERED FOR THE AM. UPDATED ON CARE PLAN.
[2018-01-22] VITALS (31 sets, daily range): BP systolic 84–116; BP diastolic 46–67
[2018-01-22 04:21] LABS: HEMATOCRIT 30.9 % (42.0-52.0); HEMOGLOBIN 10.1 gm/dL (14.0-18.0); MCH 37.7 pg (26.0-34.0); MCHC 32.5 g/dL (28.0-37.0); MPV 10.3 fl. (7.2-11.1); RBC 2.67 mil/uL (4.50-6.00); RDW-CV 17.8 % (10.5-14.5)
[2018-01-22 04:41] LABS: ALBUMIN 1.1 g/dL (3.4-5.0); CALCIUM 6.3 mg/dL (8.5-10.1); CREATININE 0.9 mg/dL (0.6-1.3); POTASSIUM 3.4 mmol/L (3.5-5.1); TOTAL PROTEIN 5.5 g/dL (6.4-8.2)
--- NOTE | 2018-01-22 06:16 | NUR ---
NO ACUTE CHANGES DURING SHIFT. PT REMAINS INTUBATED ON VENTILATOR. SOFT WRIST RESTRAINTS IN PLACE TO MAINTAIN ET TUBE, NG, PICC LINE AND LE CATHETER. PT HEMODYNAMICALLY STABLE. O2 SAT > 96%. WILL CONTINUE TO MONITOR.
[2018-01-22 08:54] LABS: BE -2.8 mmol/L (-2 to +3); HCO3 19.8 mmol/L (22.0-26.0); PCO2 27.7 mmHg (35.0-45.0); PO2 75.8 mmHg (75.0-100.0); pH 7.472 (7.340-7.450)
--- NOTE | 2018-01-22 09:31 | NUR ---
PATIENT CARE ASSUMED AT 0700. PATIENT ALERT, OPENS EYES TO VERBAL STIMULI. FOLLOWS COMMANDS. WEANING TRIAL THIS AM, DR CAO ON THE FLOOR. ORDERS FOR EXTUBATION TODAY.
--- NOTE | 2018-01-22 09:59 | NUR ---
PATIENT EXTUBATED AT 0940.
--- NOTE | 2018-01-22 17:09 | NUR ---
PATIENT PROGRSSING TOWARDS GOALS. SINCE EXTUBATION HAS BECOME MORE ALERT, BUT STILL DROWSY AT TIMES. ATTEMPTING TO SPEAK, BUT VOICE VERY HOARSE. COOPERATIVE WITH CARE. DID ASK "MAY I HAVE SOME YOGURT?" PATIENT COUGHING WITH MOUTH SWABS, ST EVALUATION AND POSSIBLE SWALLOW STUDY TOMOROW. EXPLAINED THIS TO PATIENT AND HE VOICED UNDERSTANDING. TRACING NSR TO SINUS TACH ON EXPERIMENTAL WELDER THROUGHOUT SHIFT. BLOOD PRESSURES SOFT, BUT STABLE. LUNG SOUNDS REMAIN COARSE, NOT TACHYPNEIC, O2 SATS 97-99% ON 2L NC. HAS FAIR COUGH, NOT CLEARING ANY SECRETIONS. DENIES PAIN/SOA/NAUSEA.
[2018-01-22 17:19] LABS: MAGNESIUM 2.3 mg/dL (1.8-2.4); PHOSPHORUS* 2.1 mg/dL (2.5-4.9); POTASSIUM 3.6 mmol/L (3.5-5.1)
--- NOTE | 2018-01-22 21:49 | NUR ---
PT. STATING HE WANTS TO "GET OUT OF HERE". SAYING NEGATIVE THINGS TO THIS RN, SUCH "LEAVE ME THE HELL ALONE" "GET THE HELL OUT OF HERE". WILL CONTINUE TO MONITOR.
[2018-01-23] VITALS (11 sets, daily range): BP systolic 87–141; BP diastolic 49–79
--- NOTE | 2018-01-23 03:16 | NUR ---
PT. PULLED OUT NG TUBE. SPEECH THERAPY TO SEE PT. TODAY, WILL LEAVE NG OUT UNTIL FURTHER ORDERS FROM
--- NOTE | 2018-01-23 03:17 | NUR ---
REFUSING TO ALLOW THIS RN TO INSERT NEW NG
[2018-01-23 03:45] LABS: HEMATOCRIT 30.6 % (42.0-52.0); HEMOGLOBIN 9.8 gm/dL (14.0-18.0); MCH 37.3 pg (26.0-34.0); MCHC 32.1 g/dL (28.0-37.0); MCV 116.2 fL (80.0-100.0); RBC 2.64 mil/uL (4.50-6.00); RDW-CV 17.6 % (10.5-14.5); WBC 23.5 thou/uL (4.0-11.0)
[2018-01-23 03:57] LABS: ALBUMIN 1.1 g/dL (3.4-5.0); CALCIUM 6.7 mg/dL (8.5-10.1); CREATININE 0.8 mg/dL (0.6-1.3); MAGNESIUM 2.2 mg/dL (1.8-2.4); PHOSPHORUS* 1.9 mg/dL (2.5-4.9); POTASSIUM 3.1 mmol/L (3.5-5.1); TOTAL BILIRUBIN 7.9 mg/dL (<0.1-1.0); TOTAL PROTEIN 5.9 g/dL (6.4-8.2)
--- NOTE | 2018-01-23 05:26 | NUR ---
PT. HAS MAINTAINED ADEQUATE OXYGEN LEVELS THROUGHOUT SHIFT ON 2L O2. PT. HAS BEEN VERY FRUSTRATED/ANGRY THROUGHOUT SHIFT, CURSING, TELLING THIS RN TO GET OUT OF HIS ROOM AND LEAVE HIM ALONE. HAS STATED HE WANTS TO GO HOME. HAS ASKED THIS RN TO GET HIM OUT OF BED. INSTRUCTED THAT THERAPY WILL BE WORKING WITH HIM TODAY. WEAK COUGH, NO SPUTUM OBSERVED. POTASSIUM AND PHOS REPLACING AT THIS TIME. RIGHT PICC LINE CATH ROBERTA X3, ABLE TO ASPIRATE BLOOD. WILL CONTINUE TO MONITOR.
--- NOTE | 2018-01-23 10:05 | NUR ---
PT TRANSFERED TO ROOM 226. REPORT GIVEN TO YOANA CAMACHO.
--- NOTE | 2018-01-23 11:41 | NUR ---
RECEIVED REPORT FROM YOANA SORENSON. PT TELE STATUS. TRANSFERRED TO 226 AROUND 1000 WITH NURSE AND SITTER. WILL CONTINUE TO MONITOR.
[2018-01-24] VITALS: BP 102/66
[2018-01-24 04:00] VITALS: BP 110/64
[2018-01-24 04:55] LABS: HEMATOCRIT 28.6 % (42.0-52.0); HEMOGLOBIN 9.3 gm/dL (14.0-18.0); MCH 37.8 pg (26.0-34.0); MCHC 32.6 g/dL (28.0-37.0); MCV 116.1 fL (80.0-100.0); RBC 2.46 mil/uL (4.50-6.00); WBC 13.6 thou/uL (4.0-11.0)
[2018-01-24 04:57] LABS: ALKALINE PHOSPHATASE 252 U/L (46-116); AMMONIA < 10 umol/L (11-32); ANION GAP 9 mmol/L (7-16); BUN 17 mg/dL (7-18); CALCIUM 7.3 mg/dL (8.5-10.1); CHLORIDE 112 mmol/L (98-107); CO2 22 mmol/L (21-32); CREATININE 0.7 mg/dL (0.6-1.3); GLUCOSE 93 mg/dL (70-99); MAGNESIUM 1.8 mg/dL (1.8-2.4); PHOSPHORUS* 2.7 mg/dL (2.5-4.9); POTASSIUM 3.4 mmol/L (3.5-5.1); SGOT 162 U/L (15-37); SGPT 48 U/L (30-65); SODIUM 143 mmol/L (136-145); TOTAL BILIRUBIN 6.3 mg/dL (<0.1-1.0)
--- NOTE | 2018-01-24 06:10 | NUR ---
PT IS ABLE TO COMMUNICATE HIS NEEDS TO STAFF WITH SOME DIFFICULTY; HE IS CONFUSED, DROWSEY, AND DIFFICULT TO UNDERSTAND AT TIMES. HE HAS DENIED THE NEED FOR PAIN MEDICATIONS UP TO THIS TIME. 1:1 OBSERVATION WITH SITTER MAINTAINED DURING THIS SHIFT. FECAL MANAGEMENT TUBE DISLOGED; REPLACED AND NOW PATENT; TOLERATED WELL BY PT. LE PATENT. PT TAKING PO, BUT IS A FEEDER. PT AND OT FOLLOWING.
[2018-01-24 08:00] VITALS: BP 158/94
--- NOTE | 2018-01-24 09:00 | NUR ---
VSS, ASSUMED CARE IN THE AM, ASSESSMENT PERFORMED AND CHARTED, FALL PRECAUTIONS IN PLACE AND CALL LIGHT IN REACH, PT HAS SITTER IN ROOM AT BEDSIDE, PT IS CONFUSED AND IMPULSIVE, PT IS TRACING ST ON THE MONITOR AND ON 2L NC PRN, LE IN PLACE AND FECAL TUBE IN AND ARE DRAINING, WILL FOLLOW WITH PLAN OF CARE.
[2018-01-24 12:00] VITALS: BP 110/76
--- NOTE | 2018-01-24 19:01 | NUR ---
VSS, PT IS IS CONFUSED AND IS IMPULSIVE, LE AND DECAL TUBE HAVE BEEN D/C'D, PT IS ST ON THE MONITOR AND UP WITH MAX ASSIST, PT HAS SITTER AT BEDSIDE AND HOURLY ROUNDS COMPLETED.
[2018-01-24 20:51] VITALS: BP 105/74
[2018-01-25] VITALS: BP 111/72
[2018-01-25 04:00] VITALS: BP 119/80
--- NOTE | 2018-01-25 04:39 | NUR ---
pt continues to be oriented to self. ST on monitor. pt afebrile and VSS. pt continues with PPN for nutrition. pt on RA. pt has had a few incontinence episodes. pt with Q4H CIWA checks. am labs to be drawn.
[2018-01-25 07:30] VITALS: BP 123/79
--- NOTE | 2018-01-25 11:00 | NUR ---
RECEIVED PT CARE 0700. PATIENT IS ALERT AND ORIENTED X3-4. FORGETFUL AT TIMES AND MUMBLES WHEN HE SPEAKS AT TIMES. VSS. VP LAB TRACING ST, HEART RATE LOW 100'S. HE DENIES ANY SOA. O2 SAT 98% ON ROOM AIR. INCONTINENT OF URINE X2 THIS AM. VOIDS PER URINAL WHEN REMINDED OR ASKED IF HE NEEDS TO VOID. AM ASSESSMENT CHARTED. MEDS PER MAR. ABDOMINAL US TODAY WITH PARACENTESIS. [facility] DC'D. REPORT CALLED TO MICHI ON JSSI. PATIENT TRANSFERRING TO 107. ALL HIS BELONGINGS PACKED AND TRANSFERRING WITH PATIENT.
--- NOTE | 2018-01-25 14:09 | NUR ---
PATIENT ARRIVED ON UNIT FROM TELE AT 1400. COMPLETED REASSESSMENT. ORIENTED PATIENT TO ROOM. PATIENT DENIES PAIN AT THIS TIME. TOLERATED DIET, NO NAUSEA AND VOMITING. COMPLETED HOURLY ROUNDING. CALL LIGHT WITHIN REACH. WILL CONTINUE TO MONITOR.
--- NOTE | 2018-01-25 15:11 | NUR ---
ATTEMPTED X3 TODAY TO VISIT WITH PT. HE WAS BUSY WITH OTHER CAREGIVERS EACH TIME. TRANSFERRED TO MED/SURG BED NOW. DISCUSSED WITH ELIO DUFF.
--- NOTE | 2018-01-25 18:58 | NUR ---
1630-ASSUMED CARE OF PT. PT SLEEPING AT THIS TIME. 1:1 AT BEDSIDE, FALL PXN IN PLACE. 190-PT SLEEPING SINCE TAKING THIS PT
[2018-01-25 20:00] VITALS: BP 98/54
[2018-01-26] VITALS: BP 100/62
[2018-01-26 05:00] VITALS: BP 94/68
[2018-01-26 06:41] LABS: HEMATOCRIT 28.6 % (42.0-52.0); HEMOGLOBIN 9.5 gm/dL (14.0-18.0); MCH 38.2 pg (26.0-34.0); MCHC 33.3 g/dL (28.0-37.0); MCV 114.7 fL (80.0-100.0); RBC 2.5 mil/uL (4.50-6.00); RDW-CV 15.6 % (10.5-14.5)
[2018-01-26 06:58] LABS: ALBUMIN 0.9 g/dL (3.4-5.0); CALCIUM 6.9 mg/dL (8.5-10.1); CREATININE 0.7 mg/dL (0.6-1.3); MAGNESIUM 1.1 mg/dL (1.8-2.4); POTASSIUM 3.9 mmol/L (3.5-5.1); TOTAL BILIRUBIN 4.3 mg/dL (<0.1-1.0); TOTAL PROTEIN 5.5 g/dL (6.4-8.2)
--- NOTE | 2018-01-26 07:52 | NUR ---
Drowsy and oriented x 2. Vitals have been stable. He has a sitter at the bedside. He is incontinent of bowel and bladder. He is drinking fluids well. He likes ice chips. He has been cooperative and more talkative. He is still jaundice.
[2018-01-26 08:05] VITALS: BP 100/67
[2018-01-26 15:36] VITALS: BP 96/62
--- NOTE | 2018-01-26 17:00 | NUR ---
PT.IN BED WITH AT BEDSIDE. PT.WAS ALERT AND ORIENTED. FORGETTFUL AT TIMES. SEEMS SUPPORTIVE. THEY LIVE IN AN APT.WITH THEIR ONE CHILD. PT.SAID HE WAS INDEPENDENT AT HOME. HE COULD DRESS HIMSELF AND BATHE/SHOWER INDEPENDENTLY. SAID HE TOOK A VERY LONG TIME TO DO ADLS, DUE TO WEAKNESS HE DID NOT USE ANY DME. LAST WORKED IN OCTOBER. HE STATED HIS CO. DID NOT OFFER INSURANCE. WORKS FULLTIME. SHE IS ON [employer]. DISCUSSED DISCHARGE OPTIONS. DISCUSSED [employer]. SAID NO ONE HAS CALLED HER FROM [employer]. CM WILL CONTACT MICAH FROM [employer]. NO DISCHARGE PLANNED FOR THE WEEKEND. CM WILL F/U WITH PT.ON MONDAY.
--- NOTE | 2018-01-26 18:57 | NUR ---
PATIENT RESTING IN BED. PATIENT DENIES ANY PAIN. PATIENT HAS BEEN CALM AND COOPERATIVE THROUGHOUT DAY. PATIENT HAS BECOME MORE ORIENTED THROUGHOUT DAY. PATIENT IS UP WITH MAX ASSIST OF 2 FOR TRANSFER. PATIENT DID WORK AND PHYSICAL AND OCCUPATIONAL THERAPIES TODAY. PATIENT HAS FAIR APPETITE. PATIENT HAS PARACENTESIS SITE TO RIGHT ABDOMEN THAT IS DRAINING SEROUS FLUID, DRAINING CHANGED X 3 TODAY. PATIENT DENIES ANY NEEDS AT THIS TIME. CALL LIGHT WITHIN REACH. WILL CONTINUE TO MONITOR.
[2018-01-26 20:00] VITALS: BP 96/59
[2018-01-27] VITALS: BP 110/63
[2018-01-27 04:00] VITALS: BP 98/64
[2018-01-27 04:00] LABS: ALBUMIN 1.1 g/dL (3.4-5.0); CALCIUM 7.1 mg/dL (8.5-10.1); CREATININE 0.7 mg/dL (0.6-1.3); POTASSIUM 3.1 mmol/L (3.5-5.1); TOTAL PROTEIN 5.5 g/dL (6.4-8.2)
--- NOTE | 2018-01-27 07:09 | NUR ---
PATIENT HAD SITTER IN ROOM DURING SHIFT. C/O LOWER BACK PAIN. MEDICATIONS GIVEN ORDERED AND CHARTED. VSS ON 2L 02 VIA NASAL CANNULA. DRESSING TO RIGHT SIDE OF ABDOMEN CHANGED X 2 DURING SHIFT. TRIPLE LUMEN PICC TO RIGHT UPPER ARM-SL. IV ABT GIVEN WITHOUT ANY ADVERSE SIDE EFFECTS. PATIENT URINATING ADEQUATELY AND DOES USE URINAL, BUT AT TIMES IS INCONTINENT OF BLADDER. PATIENT DID HAVE BM'S X 2 DURING SHIFT. PATIENT GIVEN POTASSIUM THIS AM FOR LOW POTASSIUM LEVEL. PATIENT INSTRUCTED TO USE CALL LIGHT WHEN NEEDING ASSISTANCE. HOURLY ROUNDS MADE. NURSING TO CONTINUE MONITORING.
[2018-01-27 08:00] VITALS: BP 93/59
--- NOTE | 2018-01-27 15:05 | NUR ---
CONTINUE TO FOLLOW, MET WITH PT. MORE ALERT AND ORIENTED TODAY, STATES WAS ABLE TO AMBULATE WITH THERAPY. TALKED WITH HIM ABOUT HIS ETOH USE, STATES DRINKS 'AT LEAST' A PINT OF VODKA A DAY, SOMETIMES MORE. PT SEEMS TO HAVE LIMITED INSIGHT INTO THE SEVERITY OF HIS DRINKING AND ILLNESS. C/O OF NUMBNESS IN FEET, NURSE AWARE. PT HAS [facility], ASKED IF HE WAS IN SERVICE OR MAY HAVE SERVICE BENEFITS, STATED HE WAS ONLY IN THE [employer] [facility] ABOUT A YEAR AND HAD A OTH DISCHARGE (OTHER THAN HONORABLE). CM TO FOLLOW
--- NOTE | 2018-01-27 16:25 | NUR ---
PATIENT UP AND AMBULATED WITH THERAPY TODAY TO THE DOOR AND BACK X 2. PATIENT UP TO SIDE OF BED TO VOID PER URINAL. ALERT AND ORIENTED THIS SHIFT. REMAINS A 1:1. DR. PAYAN AWARE THIS AM THAT PARACENTESIS SITE CONTINUES TO LEAK CAUSING FOR FREQUENT DRESSING CHANGES FOR SATURATION, NO NEW ORDERS RECEIVED. PATIENT GIVEN CATHFLO VIA PICC LINE FOR SLUGGISH BLOOD RETURN. SCHED IV ABX REMAIN. URINE REMAINS DARK YELLOW TO ORANGE IN COLOR. TURNED Q2 IN BED. TRAMADOL PRN GIVEN X 1 THIS SHIFT FOR NELDA EDEMATOUS FEET PAIN.
[2018-01-27 17:03] VITALS: BP 89/56
[2018-01-27 20:00] VITALS: BP 102/62
--- NOTE | 2018-01-28 04:37 | NUR ---
PATIENT ALERT AND ORIENTED X4. RESTING QUIETLY THIS AM. REPOSITIONED SELF THROUGHOUT THE NIGHT. DRESSING CHANGED ON PARACENTESIS SITE DUE TO SATURATION. VITALS STABLE ON ROOM AIR. 1:1 SITTER IN ROOM PER ORDERS. CONTINUE TO MONITOR.
[2018-01-28 08:40] VITALS: BP 104/58
[2018-01-28 10:18] LABS: CALCIUM 7.4 mg/dL (8.5-10.1); CREATININE 0.7 mg/dL (0.6-1.3); POTASSIUM 3.4 mmol/L (3.5-5.1)
[2018-01-28 15:31] VITALS: BP 100/64
--- NOTE | 2018-01-28 16:02 | NUR ---
PATIENT RIGHT ABD DRESSING CHANGED X 2 THIS SHIFT. LASIX AND SPIRLACTOLONE INCREASED IN DOSE THIS SHIFT. MULTIPLE BM'S NOTED VIA BEDSIDE COMMODE, VOIDING PER URINAL. REHAB CONS PLACED PER ORDERS. PATIENT SBA TO BSC AND AMBULATED WITH PT. AND BROTHER HERE AT BEDSIDE THIS EVENING.
[2018-01-28 20:00] VITALS: BP 103/63
--- NOTE | 2018-01-29 04:46 | NUR ---
PATIENT REMAINS ALERT AND ORIENTED X4. UP WITH STAND BY ASSIST AND WALKER. SMALL BM THIS SHIFT. IV ABX INFUSED ORDERED. DENIES PAIN OR NAUSEA. PARACENTESIS SITE CONTINUES TO OOZE, DRESSING CHANGED X2. ABDOMEN REMAINS DISTENDED. VITALS STABLE. WILL CONTINUE TO MONITOR.
[2018-01-29 06:23] LABS: ABSOLUTE EOSINOPHILS 0.1 thou/uL (0.0-0.7); ABSOLUTE MONOCYTES 0.4 thou/uL (0.0-1.2); ABSOLUTE NEUTROPHILS 2.6 thou/uL (1.6-8.1); EOSINOPHILS 1.9 %; HEMATOCRIT 40.2 % (42.0-52.0); HEMOGLOBIN 13.5 gm/dL (14.0-18.0); MCH 36.8 pg (26.0-34.0); MCHC 33.4 g/dL (28.0-37.0); MCV 110.1 fL (80.0-100.0); MONOCYTES 10.5 %; MPV 9.1 fl. (7.2-11.1); NUCLEATED RBCS 0 /100WBC; PLATELET COUNT* 157 thou/uL (150-400); POLYS 62.6 %; RBC 3.65 mil/uL (4.50-6.00); RDW-CV 14.8 % (10.5-14.5); WBC 4.1 thou/uL (4.0-11.0)
[2018-01-29 06:32] LABS: CALCIUM 7.6 mg/dL (8.5-10.1); CREATININE 0.7 mg/dL (0.6-1.3); POTASSIUM 3.3 mmol/L (3.5-5.1)
[2018-01-29 07:08] LABS: PLATELET ESTIMATE ADEQUATE
[2018-01-29 07:13] LABS: ANISOCYTOSIS 2+; MACROCYTES 2+; POIKILOCYTOSIS 1+; POLYCHROMASIA Occasional
--- NOTE | 2018-01-29 07:34 | CON ---
[address] [address] CONSULTATION Name: OLIVE REDDY Room: [address] [place] .R.#: [id number] Admission: 01/13/18 Attend Phys: Annamarie Ye MD Discharge: Date of : 81 Report #: [id number] THIS REPORT FOR: //name// CC: ADONIS physician/PCP Annamarie Ye DATE OF SERVICE: 01/19/2018 INFECTIOUS DISEASE CONSULTATION ATTENDING PHYSICIAN: Dr. Rodriguez. REASON FOR EVALUATION: Nosocomial related pneumonitis in the setting of likely early sepsis, multiorgan dysfunction including alcoholic hepatitis. HISTORY OF PRESENT ILLNESS: Chart reviewed, patient examined. This is a 32-year-old, has a history of asthma and perhaps seizure, who was admitted through the Emergency Room after a week or 2 history of progressive abdominal related pain, some dyspnea, was found to be jaundiced at that point. He was confirmed to have history of heavy drinking alcohol. He was admitted with presumptive diagnosis of alcoholic hepatitis. This was complicated by electrolyte abnormalities with hyponatremia, hypokalemia, markedly elevated liver function tests with a total bilirubin of 21.4., was placed empirically on combination therapy with ceftriaxone and metronidazole. Throughout the course of hospitalization, he clinically worsened, probably aspirated and required intubation and mechanical ventilatory support. He is sedated. In addition, has required pressor support with norepinephrine. Has had intermittent temperature elevations. There has been some concern about possible acute cholecystitis as well. ALLERGIES: None known. CURRENT MEDICATIONS: Include vancomycin, Zosyn, ____, levothyroxine, vitamin, thiamine, p.r.n. analgesics, antiemetics. PAST MEDICAL HISTORY: Notable for the seizure and asthma, perhaps posttraumatic stress disorder. SOCIAL HISTORY: He has daily heavy ethanol use, also smokes cigarettes. No illicit drug use. FAMILY HISTORY: Noncontributory. REVIEW OF SYSTEMS: Not obtainable. PHYSICAL EXAMINATION: [place] [address] CONSULTATION Name: OLIVE REDDY Mark Room: [address] IN [facility]#: [id number] Admission: 01/13/18 Attend Phys: Annamarie Ye MD Discharge: Date of : 81 Report #: [id number] GENERAL: He is evidently jaundiced. He is supine. He is sedated, maintained on ventilatory support. VITAL SIGNS: Temperature earlier 100.3, more recently 97.4, pulse 121, respirations 27, blood pressure is 113/64. HEENT: He has ET tube. NECK: Seemingly supple. LUNGS: Scattered coarse breath sounds. HEART: Regular. SKIN: Warm. It is evidently jaundiced. ABDOMEN: Distended, somewhat firm. It is difficult to ascertain peritoneal signs. GENITOURINARY AND RECTAL: Deferred. LABORATORY DATA: Most recent urinalysis, 0-5 white cells. Blood cultures sterile thus far. Prealbumin 8.7. Protime of 11.7 and INR 1.2. Electrolytes most recently, sodium 133, potassium 3.8, chloride 101, bicarbonate is 22, anion gap of 10, BUN and creatinine 14 and 0.8. SGOT is down to 181 from 823, lipase initially was 431, total bilirubin was 21.4 initially, now 15.9. ALT is in normal range now. TSH 11.561. White count 14.4, H and H 11.8 and 35.2, platelets of 146. CT of abdomen and pelvis most recently, areas of atelectasis, pneumonia, left lower lobe; left pleural effusion, right lower lobe atelectasis, diffuse fatty infiltration of the liver. Gallbladder is partially contracted, marked thickening of the wall of the entire colon with no evidence of abscess, suggest diffuse colitis to the new finding. Cultures are unremarkable thus far including paracentesis fluid, total cells of 208, ____ polys. ASSESSMENT: Alcoholic hepatitis, complicated by multiorgan dysfunction including pneumonitis and respiratory failure, probably on the basis of aspiration. Also, has significant ascites; however, he does appear to be overtly infected. He has a new finding of colitis, although he is not having stools and most recently switched to vancomycin, piperacillin and tazobactam, I think that is a reasonable approach. We will continue current therapy as prescribed. Did have recent blood cultures collected, still waiting on sputum cultures. Most recent urinalysis was fairly unremarkable. We will continue weaning efforts. He is critically ill at this point, although seemingly, this is all reversible. We will follow. <ELECTRONICALLY SIGNED> By: Abdoulaye Pickens MD 01/29/18 [id number] Pickens MD /nt
[2018-01-29 08:40] VITALS: BP 100/55
--- NOTE | 2018-01-29 15:22 | NUR ---
WOUND NURSE: JANINA PRESENTS WITH COCCYGEAL FISSURE MEASURING 0.5 X 0.3 X 0.1 CM. PRESENTS A SHALLOW EROSION WITH PARTIAL THICKNESS TISSUE LOSS AND NO ACTIVE DRAINAGE AT TIME OF THIS ASSESSMENT. CLEANSED WITH SOAP AND WATER, RINSED, AND PATTED DRY. APPLIED Z-KATRINA BARRIER CREAM TO THE AFFECTED AREA FOR PROTECTION.
--- NOTE | 2018-01-29 15:28 | NUR ---
RECEIVED CONSULT FOR POSSIBLE REHAB ADMISSION. CONSULT ACKNOWLEDGED BY DIALYSIS EQUIPMENT TECHNICIAN AND DR. CASTAÑEDA. PT IS S/P INTUBATION RESP FAILURE AND LIVER FAILURE FROM ETOH ABUSE, NOW WITH ENCEPHALOPATHY AND PNUEMONIA. PATIENT WAS SBA WITH PT FOR GAIT AND TRANSFERS, MIN A WITH OT FOR SOME ADLS. WILL FOLLOW ALONG TO SEE HOW PATIENT PROGRESSES TO DETERMINE IF NEEDS ACUTE REHAB OR ABLE TO GO HOME WITH . THANK YOU FOR THIS CONSULT.
[2018-01-29 16:00] VITALS: BP 104/59
--- NOTE | 2018-01-29 17:51 | NUR ---
PATIENT HAS BEEN ALERT AND ORIENTED TODAY VERY PLEASANT. UP WITH ASSIST OF WALKER, GAIT BELT AND STAND BY, DOING VERY WELL. PHYSICAL THERAPY SAYS PATIEMT THOUGHT SOAP DISPENSER WAS A CAT, I HAVE NOT WITNESSED ANY HALLUCINATIONS TODAY. PICC LINE DRESSING CHANGED TODAY. CALL LIGHT IS IN REACH, SEIZURE PRECAUTIONS IN PLACE. VITAL SIGNS HAVE BEEN STABLE ON ROOM AIR TODAY, NO COMPLAINTS OF PAIN. WILL CONTINUE TO MONITOR.
[2018-01-29 20:00] VITALS: BP 106/62
[2018-01-30 04:28] LABS: HEMATOCRIT 27.3 % (42.0-52.0); MCH 37.6 pg (26.0-34.0); MCHC 33.9 g/dL (28.0-37.0); MCV 110.7 fL (80.0-100.0); MPV 9.5 fl. (7.2-11.1); RBC 2.46 mil/uL (4.50-6.00); RDW-CV 14.3 % (10.5-14.5)
[2018-01-30 04:48] LABS: HEMOGLOBIN 9.2 gm/dL (14.0-18.0)
[2018-01-30 05:04] LABS: ALBUMIN 1.3 g/dL (3.4-5.0); CALCIUM 7.3 mg/dL (8.5-10.1); CREATININE 0.8 mg/dL (0.6-1.3); POTASSIUM 3.7 mmol/L (3.5-5.1); TOTAL BILIRUBIN 3.4 mg/dL (<0.1-1.0); TOTAL PROTEIN 5.6 g/dL (6.4-8.2)
--- NOTE | 2018-01-30 05:28 | NUR ---
PATIENT ALERT AND ORIENTED X 4. VITALS STABLE. RA. UP WITH SBA. VOIDS PER URINAL. ABDOMINAL DRESSING FROM PARACENTESIS SITE IS C/D/I. REPOSITIONS SELF IN BED. SEIZURE PRECAUTIONS IN PLACE. DENIES ANY NEEDS. HOURLY ROUNDS. NURSING WILL CONTINUE TO MONITOR.
[2018-01-30 09:09] VITALS: BP 98/63
--- NOTE | 2018-01-30 14:00 | NUR ---
SPENT A LONG TIME WITH PT.DISCUSSING DISCHARGE. HE IS HOPING TO GO HOME SOON. HE SAID HE WOULD RATHER GO HOME THAN UPSTAIRS TO REHAB. PER 'S CONSULT NOTE HE IS DOING TOO WELL TO ADMIT TO REHAB. HE SAID HE LIVES IN AN [place]WITH HIS AND 10 YO SON. HIS MOTHER IN LAW IS HERE FROM [facility] SINCE DECEMBER AND SAID SHE CAN STAY LONG NEEDED. SHE HAS A WALKER THAT SHE BROUGHT WITH HER FOR HIM. SHE DOES NOT USE IT HERSELF. HE SAID HE ALREADY PICKED OUT A CHAIR AT HOME THAT THINKS WILL BE EASIER FOR HIM TO GET IN AND OUT OF. HE SAID HE PLANS ON WALKING AROUND APT.BUILDING (INSIDE) SEVERAL TIMES/DAY AND UP AND DOWN THE STEPS FROM 1ST-2ND FLOOR TO BUILD UP HIS STRENGTH. CM ENCOURAGED GOOD NUTRITION, ALSO. GAVE PT.ALCOHOL DEPENDENCE PACKET WITH CRISIS PHONE NUMBERS AND PACKE FOR THE UNINSURED WITH A MO.DRUG DISCOUNT CARD. SPOKE WITH AND SHE WOULD LIKE A COUPLE OF [facility] HOME HEALTH VISITS. EMAIL SENT TO ELLE AT [facility]. CM SPOKE WITH PT.'S ON CELL #. TOLD HER EVERYTHING PT.TOLD ME TO MAKE SURE IT WAS CORRECT INFO. SHE SAID IT WAS. SHE SAID THEY ARE IN THE [employer] SYSTEM. CM WILL MAKE FOLLOW UP APPT. FOR PT.AND CALL HIS TOMORROW WITH THAT AND LET HER KNOW OF HOME HEALTH VISITS. SHE SAID [employer] BEST SHE IS OFF THAT DAY FOR HIS F/U APPT, IF POSSIBLE. PT.'S PHARMACY IS [facility] [address]. YOANA FOSTER INFORMED OF ALL OF THE ABOVE.
--- NOTE | 2018-01-30 15:42 | NUR ---
PATIENT HAS BEEN ALERT AND ORIENTED TODAY, PLEASANT BUT ANXIOUS, PATIENT IS READY TO DISCHARGE. HAS TOLERATED THERAPY VERY WELL AND HAS WALKED THE HALLWAYS TODAY. NO COMPLAINTS OF PAIN TODAY, VITAL SIGNS STABLE ON ROOM AIR. CALL LIGHT IS IN REACH, WILL CONTINUE TO MONITOR.
--- NOTE | 2018-01-30 15:49 | NUR ---
I have reviewed the documentation by SHELDON SAUCEDA from 01/30/18 to 01/30/18 and I concur with it. MARTHA, MARIELA
[2018-01-30] MEDS ORDERED: LACTULOSE20 GM/30 M PO (16:03)
[2018-01-30] MEDS ORDERED: SPIRONOLACTONE25 MG PO (16:03)
[2018-01-30] MEDS ORDERED: PRENATAL PO (16:03)
[2018-01-30] MEDS ORDERED: SYNTHROID50 MCG PO (16:03)
[2018-01-30] MEDS ORDERED: LASIX 40 MG TAB40 M1 PO (16:03)
[2018-01-30 16:06] VITALS: BP 104/62
[2018-01-30 16:54] VITALS: BP 104/62
--- NOTE | 2018-01-30 17:45 | NUR ---
ASSUMED CARE OF PATIENT AT 1700. PATIENT HAD JUST RECEIVED DISCHARGE ORDERS. PATIENT DISCHARGING TO HOME WITH [facility] VISITS. CASE MANAGEMENT IS ALSO TO CALL PATIENT TOMORROW WITH APPT FOR [facility]UEVAS DOCTOR. PATIENTS BROTHER AND ARE PRESENT DURING DISCHARGE INSTRUCTIONS. PATIENT VOICES THAT HE WILL LIKELY NOT BE COMPLIANT. PATIENTS BROTHER AND VERBALIZE UNDERSTANDING OF DISCHARGE INSTRUCTIONS. PATIENTS PICC LINE WAS REMOVED BY PREVIOUS RN CRISTIAN. PRESCRIPTIONS CALLED INTO [facility].
--- NOTE | 2018-02-01 16:39 | NUR ---
01/31 [facility] VISITS. FAXED INFORMATION TO NATI. SHE WILL CALL PT.TO SET UP APPT.TIME. ELIO SPOKE WITH [phone] SHE SAID PT.WILL NEED TO GO THROUGH THEIR FINANCIAL OFFICE FIRST TO SEE IF HE QUALIFIES FOR ASSISTANCE. HE CAN WALK IN TO THEIR OFFICE M-F 8:30-4:30. HE CAN CALL AT [phone] TO SEE WHAT INFORMATION HE NEEDS TO BRING WITH HIM. CALLED AND SPOKE WITH PT.ON PHONE. HE SAID HE WAS HAVING A LOT OF SWELLING IN HIS FEET. HE SAID HE WAS TAKING HIS MEDS CORRECTLY. HE SAID HE COULD LAY FLAT AND SLEEP,WHERE HE COULD NOT DO THAT BEFORE. ENCOURAGED HIM TO ELEVATE HIS LEGS MUCH HE COULD. TOLD HIM ABOUT [facility] AND VISITS. ELIO ALSO LEFT VM FOR ON HER CELL ABOUT ALL OF THE ABOVE.
--- NOTE | 2018-02-08 12:28 | NUR ---
PT./ HAS CALLED SEVERAL TIMES IN THE PAST 2 DAYS,REQUESTING 3 MEDS TO BE CALLED IN TO HIS PHARMACY [facility] [phone]. HE SAID HE DOES NOT HAVE AN APPT. TO SEE GI AT [facility] UNTIL FEB. HE SAID HE IS CLOSE TO RUNNING OUT OF MEDS PRESCRIBED AT DISCHARGE BY . ALSO RECEIVED EMAIL FROM [facility] STATING PT.CALLED THEM. OFF UNTIL BEGINNING OF NEXT WEEK. SPOKE WITH . HE AUTHORIZED ME TO CALL IN FUROSEMIDE 40MG PO BID,LEVOTHYROXINE 50MCG PO DAILY AND SPIRONALACTONE 25 MG PO 4 TIMES A DAY-ONE MONTHS SUPPLY FOR ALL OF THE ABOVE. CM NOTIFIED PT.BY PHONE.
--- NOTE | 2018-04-27 07:06 | PATH ---
[address] [address] PATHOLOGY RPT PROCEDURE Name: OLIVE REDDY Mark Room: [address]#: [id number] Admission: 01/13/18 Date of : 81 Discharge: 01/30/18 Report #: [id number] Path Case #: [id number] Note [facility] Accession Number: [id number] TESTS RESULT FLAG UNITS REF RANGE LAB Clinician Provided Cytology Information No. of containers..01 Other (Miscellaneous) Source: ASCITES DIAGNOSIS: 02 ASCITES INCONCLUSIVE - RARE ATYPICAL CELLS. REACTIVE MESOTHELIAL CELLS ARE ALSO PRESENT. THIS INTERPRETATION INCLUDES EVALUATION OF A CELL BLOCK. Signed out by: 02 Matt Teran MD, Pathologist NPI- [id number] Performed by: 02 Miranda Lainez, Landscape Crew Member ([facility]) Gross description: 01 45ML, YELLOW, CLOUDY /LCS FLAG LEGEND: L-Low Normal,H-High Normal,LL-Alert Low,HH-Alert High <-Panic Low,>-Panic High,A-Abnormal,AA-Critical Abnormal Performed at: [address] [place] [address] Maksim Estrada MD, [address] [place] [id number] Gilmar King MD, Specimen Comment: A duplicate report has been generated due to demographic updates. Performed at: [address], [place], [place] [id number] MD Maksim Estrada MD Phone: [phone]
== END 2018-01-30 17:45 | disposition home health service (06) | DRG 870 ==
LOC: M.ERS 08:35 → M.TBA-ER 10:47 → M.ICU 11:13 → M.TBA-ER 11:13 → M.ICU 11:51 → M.2W 01-23 09:31 → M.ORTHSURG 01-25 13:56
PROVIDERS: Internal Medicine; Internal Medicine Gastroenterology; Internal Medicine Infectious Disease; Internal Medicine Pulmonary Disease; Personal Emergency Response Attendant; ADMIT Internal Medicine
PROC: 0W9G3ZX Drainage of Peritoneal Cavity, Percutaneous Approach, Diagnostic (ICD-10-PCS; principal; 2018-01-14)
PROC: 02HV33Z Insertion of Infusion Device into Superior Vena Cava, Percutaneous Approach (ICD-10-PCS; principal; 2018-01-14)
PROC: B548ZZA Ultrasonography of Superior Vena Cava, Guidance (ICD-10-PCS; principal; 2018-01-14)
PROC: BW40ZZZ Ultrasonography of Abdomen (ICD-10-PCS; principal; 2018-01-14)
PROC: 5A1955Z Respiratory Ventilation, Greater than 96 Consecutive Hours (ICD-10-PCS; 2018-01-15)
PROC: 3E0436Z Introduction of Nutritional Substance into Central Vein, Percutaneous Approach (ICD-10-PCS; 2018-01-15)
PROC: 0BH17EZ Insertion of Endotracheal Airway into Trachea, Via Natural or Artificial Opening (ICD-10-PCS; 2018-01-15)
PROC: 02HV33Z Insertion of Infusion Device into Superior Vena Cava, Percutaneous Approach (ICD-10-PCS; 2018-01-17)
PROC: B548ZZA Ultrasonography of Superior Vena Cava, Guidance (ICD-10-PCS; 2018-01-17)
PROC: BW40ZZZ Ultrasonography of Abdomen (ICD-10-PCS; 2018-01-25)
PROC: 0W9G3ZZ Drainage of Peritoneal Cavity, Percutaneous Approach (ICD-10-PCS; 2018-01-25)
DX: A41.9 Sepsis, unspecified organism (principal); G93.41 Metabolic encephalopathy; R65.21 Severe sepsis with septic shock; J96.00 Acute respiratory failure, unspecified whether with hypoxia or hypercapnia; J15.6 Pneumonia due to other Gram-negative bacteria; K76.7 Hepatorenal syndrome; K72.00 Acute and subacute hepatic failure without coma; J95.851 Ventilator associated pneumonia; K56.7 Ileus, unspecified; E87.1 Hypo-osmolality and hyponatremia; N17.9 Acute kidney failure, unspecified; K52.9 Noninfective gastroenteritis and colitis, unspecified; K81.9 Cholecystitis, unspecified; F10.10 Alcohol abuse, uncomplicated; J45.909 Unspecified asthma, uncomplicated; E87.6 Hypokalemia; E03.9 Hypothyroidism, unspecified; K70.11 Alcoholic hepatitis with ascites; E86.1 Hypovolemia; E83.39 Other disorders of phosphorus metabolism; F17.210 Nicotine dependence, cigarettes, uncomplicated; G40.909 Epilepsy, unspecified, not intractable, without status epilepticus; Z71.41 Alcohol abuse counseling and surveillance of alcoholic; Z79.2 Long term (current) use of antibiotics; Z79.899 Other long term (current) drug therapy

== ENCOUNTER 2020-01-09 16:02 | Emergency (ER) | payer OTHER ==
[~2020-01-09] VITALS: Ht 177.8 cm; Wt 79.4 kg
[~2020-01-09 16:02] MED LIST: LACTULOSE20 GM/30 M PO; LASIX 40 MG TAB40 M1 PO; PRENATAL PO; SPIRONOLACTONE25 MG PO; SYNTHROID50 MCG PO
[2020-01-09] MEDS ORDERED: AUGMENTIN 500-1 EACH PO ×3 (16:26→17:26)
[2020-01-09 17:36] VITALS: BP 126/89
== END 2020-01-09 17:36 | disposition home or self-care (01) ==
LOC: M.ERS 16:02
DX: S40.011A Contusion of right shoulder, initial encounter (principal); J45.909 Unspecified asthma, uncomplicated; F17.210 Nicotine dependence, cigarettes, uncomplicated; W54.0XXA Bitten by dog, initial encounter; Y93.89 Activity, other specified; Y92.89 Other specified places as the place of occurrence of the external cause; Y99.8 Other external cause status